=== PATIENT | female | born 1995 | race Caucasian/White ===

== ENCOUNTER 2024-12-06 12:27 | Inpatient (IN) ==
--- NOTE | 2024-12-06 12:54 | Emergency Department Note ---
Impression & Plan Suicide attempt by beta deanne overdose ED Provider Note HISTORY OF PRESENT ILLNESS: Patient is a 29-year-old female presenting with an intentional overdose. Patient reports that around 8 AM she took 1400 to 2000 mg of metoprolol. She states that she was trying to end her life with this. Reports that she was not really feeling any symptoms and started driving home. She states that about an hour into her drive she started feeling lightheaded and called 911. She states she was evaluated by an EMS crew and had an EKG done and vital signs done. She reports that she refused any further care and was feeling well enough and started driving home again. Reports that she started to get very lightheaded and dizzy and decided to come and be evaluated in the emergency department. Patient reports she was previously prescribed metoprolol. She is unsure which type of metoprolol that she took and how many tablets. She estimates her ingestion was 1400 to 2000 mg. She states that she feels like her heart is having palpitations. She reports feeling lightheaded and dizzy. Denies any chest pain or shortness of breath. She reports she has had previous suicide attempts via overdose and has previous inpatient psychiatric admissions. She denies any alcohol ingestion. She denies any Tylenol overdose. She does report she took "10 Excedrin overnight because I was having pain and then 3 more Excedrin this morning." ROS: as above PHYSICAL EXAM: Constitutional: Patient appears in no acute distress. HENT: Head: Normocephalic and atraumatic. Eyes: EOMI, PERRL Mouth/Throat: Mucous membranes moist. Neck: Trachea midline. Neck supple. Cardiovascular: Bradycardic with regular rhythm. No murmurs, rubs or gallops. Intact distal pulses. Pulmonary/Chest: No respiratory distress. Breath sounds clear and equal bilaterally. No wheezes or rales. Abdominal: Abdomen soft, no tenderness, rebound or guarding. Musculoskeletal: No edema, tenderness or deformity noted. Skin: Warm and dry. No rash, erythema, pallor or cyanosis Psychiatric: Appropriate mood and affect for situation. Neurological: Alert and keenly responsive. CN II-XII grossly intact, moving all extremities equally and fully. MDM: - Vitals signs showed bradycardia - History obtained via patient. History as above. - Chronic conditions affecting care: Depression - Differential diagnoses include, but are not limited to: Tylenol overdose; salicylate overdose; dysrhythmia; electrolyte abnormality; ACS - Order placed for continuous cardiac monitoring. At this time, monitor showed rate of 60 bpm with normal sinus rhythm, per my interpretation. - External medical records reviewed. - EKG image interpreted by myself showed normal sinus rhythm. Rate 64 bpm. QT 422. No acute ischemic changes. QRS noted 84 ms - Discussed case with Briana at the [facility] [place] at 12:54. She reports that the patient should be monitored for any hypotension, bradycardia and hypoglycemia. Recommended 24-hour admission. Recommended that the patient be given fluids if she has any hypotension. Recommended antiemetics for nausea and glucagon if the patient becomes unstable. Recommends repeat EKGs every 4-6 hours to monitor the patient's bradycardia. Recommended that if the patient's Tylenol level is greater than 10 or if her LFTs are elevated, should empirically be started on N-acetylcysteine. Recommended that if the patient has any sort of positive aspirin level, her aspirin level should be rechecked every 2 hours. Reports that if the serum aspirin level is greater than 30 then the patient should be started on bicarb containing fluids. - Discussed case with ICU attending, Dr. Marcus, at 13:15. He reports that the patient is likely stable for a stepdown unit. However, the patient decompensates she can be admitted to the ICU. - Patient was placed on the phototypesetting equipment monitor and cardiac pads were placed on the patient's chest. Atropine is at bedside in case of profound bradycardia. - Laboratory workup interpreted by myself showed leukocytosis; normal acetaminophen/tylenol/alcohol levels; relatively normal liver function - CXR image reviewed by myself negative for pneumonia, per my interpretation - Patient's heart rate became profoundly bradycardic down into the low 30s and she felt lightheaded like she is going to pass out. She given 1 mg of IV atropine. In addition, she was given IV bolus of 5 mg of IV glucagon. Heart rate improved back up to the 60s and patient's symptoms improved. - Called poison control center again at 1355. They report they will get me on the phone with the hand coper. Poison Control Center called back at 14:10 and I spoke with hand coper, Dr. Miller. He recommended that the patient not receive any further doses of atropine. He stated that what has been done so far is appropriate for the patient. He would recommend no glucagon drip, as this would require significant amount of glucagon that would be needed at unrealistic. He does recommend that the patient receive an echocardiogram while inpatient. He states that if the patient needs any blood pressure support or if her heart rate drops less than 40 again and she is becoming symptomatic, she should be started on an epinephrine drip. - Discussion was had with business case analyst about patient's case and need for admission - Hospitalist, Dr. Watts, consulted for admission - [facility]. I have personally spent 63 minutes of critical care time in the direct management of this patient. This includes bedside care, interpretation of diagnostic studies, and testing, discussion with consultants, patient, and family members, and other required patient management activities. This 63 minutes is in excess of all separately billable procedures. ASSESSMENT AND PLAN: Diagnosis: Beta-deanne overdose; suicide attempt via beta-deanne overdose Plan: Admit Past Med/Surg History Problem List (Updated 12/06/24 @ 14:25 by Casi Arroyo MD) Suicide attempt by beta deanne overdose (Acute) Social History Smoking Status: Never smoker Feels Safe at Home: Yes Results & Data (ED) Vital Signs Vital Signs - 24 hr 12/06/24 12:30 12/06/24 12:48 12/06/24 13:04 Temperature 36.7 C Temperature Source Temporal Artery Scan Pulse Rate 64 64 Pulse Rate [Apical] 59 L Pulse Rhythm [Apical] Irregular Respiratory Rate 18 22 Respiratory Effort / Characteristics Non-Labored Spontaneous Non-Labored Spontaneous Respiratory Depth Normal Normal Respiratory Pattern Regular Blood Pressure [Left Arm] 146/95 H Blood Pressure Mean [Left Arm] 112 Blood Pressure Position [Left Arm] Semi-fowlers Pulse Oximetry 99 98 Oxygen Delivery Method Room Air Room Air Sepsis Recent Fever Within 48 Hours No Sepsis New/Unexplained Change in Mental Status N/A Sepsis Action Taken by Nursing No Action Required 12/06/24 14:06 Temperature Temperature Source Pulse Rate Pulse Rate [Apical] 61 Pulse Rhythm [Apical] Respiratory Rate 20 Respiratory Effort / Characteristics Respiratory Depth Respiratory Pattern Blood Pressure [Left Arm] 165/90 H Blood Pressure Mean [Left Arm] 115 Blood Pressure Position [Left Arm] Pulse Oximetry 95 Oxygen Delivery Method Room Air Sepsis Recent Fever Within 48 Hours Sepsis New/Unexplained Change in Mental Status Sepsis Action Taken by Nursing Laboratory Data 12/06/24 12:50 12/06/24 12:50 Lab Results 12/06/24 12/06/24 12/06/24 Range/Units 12:50 12:57 13:50 WBC 13.84 H (4.8-10.8) K/ul RBC 5.05 (4.20-5.40) M/uL Hgb 14.8 (12.0-16.0) g/dl Hct 44.5 (37.0-47.0) % MCV 88.1 (80.0-100.0) fL MCH 29.3 (25.0-34.0) pg MCHC 33.3 (32.0-36.0) g/dL RDW Std Deviation 47.9 H (36.4-46.3) fL RDW Coeff of Miles 14.7 H (11.5-14.5) % Plt Count 312 (130-400) K/uL MPV 11.6 (9.4-12.4) fL Immature Gran % (Auto) 0.3 % Neut % (Auto) 64.8 % Lymph % (Auto) 29.3 % [place] % (Auto) 4.0 % Eos % (Auto) 1.4 % Baso % (Auto) 0.2 % Neut # (Auto) 8.97 H (1.40-6.50) K/uL Lymph # (Auto) 4.06 H (1.20-3.40) K/uL [place] # (Auto) 0.55 (0.11-0.59) K/uL Eos # (Auto) 0.19 (0.00-0.50) K/uL Baso # (Auto) 0.03 (0.00-0.20) K/uL Immature Gran # (Auto) 0.04 (0.01-0.20) K/uL PT 10.4 (9.0-12.0) Seconds INR 1.0 (0.9-1.1) Sodium 142 (136-145) mmol/L Potassium 3.7 (3.5-5.1) mmol/L Chloride 106 (98-107) mmol/L Carbon Dioxide 27 (21-32) mmol/L Anion Gap 9 (3-11) BUN 12 (6-23) mg/dl Creatinine 0.88 (0.6-1.2) mg/dl Est Cr Clr Drug Dosing 150.6 ml/min eGFR 90.05 BUN/Creatinine Ratio 13.6 (10-20) Glucose 116 H (70-99(Fasting)) mg/dl POC Glucose 106 H 96 (70-99) mg/dl Calcium 9.3 (8.6-10.3) mg/dl Magnesium 1.9 (1.7-2.4) mg/dl Total Bilirubin 0.4 (0.2-1.0) mg/dl AST 36 (13-39) U/L ALT 54 H (7-52) U/L Alkaline Phosphatase 71 (34-104) U/L Troponin I High Sens 4.4 (0-14) pg/ml Total Protein 8.1 (6.0-8.3) gm/dl Albumin 4.6 (3.4-5.0) gm/dl Globulin 3.5 (2.5-4.0) gm/dl Albumin/Globulin Ratio 1.3 (0.9-2) HCG, Qual Negative (Negative) Salicylates < 3.0 L (3.0-30) mg/dl Acetaminophen < 3 L (10-30) ug/ml Ethyl Alcohol mg/dL < 10.0 (<10.0) mg/dl Administered Medications Discontinued Medications Atropine Sulfate (Atropine Sulfate 0.1 Mg/Ml 10ml Syr) Confirm Administered Dose 1 mg IV .STK-MED ONE Stop: 12/06/24 12:48 Last Admin: 12/06/24 13:52 Dose: Not Given Documented By: ANN Atropine Sulfate (Atropine So4 1 Mg/Ml 1ml Vial) 1 mg IV NOW STA Stop: 12/06/24 13:53 Last Admin: 12/06/24 13:55 Dose: 1 mg Documented By: ANN Sodium Chloride (Nss) 1,000 mls @ 999 mls/hr IV .Q1H1M ONE Stop: 12/06/24 13:38 Last Infusion: 12/06/24 14:03 Dose: Infused Documented By: Admin: 12/06/24 12:58 Dose: 999 mls/hr Documented By: ANN Sodium Chloride (Nss) 1,000 mls @ 125 mls/hr IV .Q8H STA Stop: 12/06/24 21:44 Last Admin: 12/06/24 14:01 Dose: Not Given Documented By: ANN Imaging Data Radiologist's Impression: Chest X-Ray 12/06/24 13:15 SINGLE VIEW CHEST CLINICAL HISTORY: Dizziness FINDINGS: An AP, portable, upright chest radiograph is obtained. No prior studies are available for comparison at the time of dictation. The cardiomediastinal silhouette is unremarkable. The lungs and pleural spaces are clear. No pneumothorax is seen. The bony thorax is grossly intact. IMPRESSION: No active disease in the chest. ACT 112: Negative or not required by law. Electronically signed by: Nehemias Hand M.D. 12/06/2024 1:54 PM Discharge Plan Visit Data Chief Complaint: Overdose (Intentional) Stated Complaint: OVERDOSE ED Provider: Casi Arroyo Discharge Problem: Suicide attempt by beta deanne overdose Condition: Serious Forms Stand Alone Forms: [facility], Suicide Prevention Resources Referrals Referrals: PCP,NO [Physician] -
[2024-12-06] MEDS: SODIUM CHLORIDE 0.9% 1,000 ML IV ONE (12:58)
[2024-12-06 13:01] LABS: Hematocrit (blood only) 44.5 % (37.0-47.0); Hemoglobin 14.8 g/dl (12.0-16.0); Immature Granulocytes # (auto) 0.04 K/uL (0.01-0.20); Immature Granulocytes % (auto) 0.3 %; Mean Corpuscular Hemoglobin 29.3 pg (25.0-34.0); Mean Corpuscular Volume 88.1 fL (80.0-100.0); Platelet Count 312 K/uL (130-400); RDW Standard Deviation 47.9 fL (36.4-46.3); Red Blood Count 5.05 M/uL (4.20-5.40); White Blood Count 13.84 K/ul (4.8-10.8)
[2024-12-06 13:18] LABS: Alanine Aminotransferase 54.0 U/L (7-52); Albumin Globulin Ratio 1.3 (0.9-2); Alkaline Phosphatase 71.0 U/L (34-104); Anion Gap 9.0 (3-11); Bilirubin,Total 0.4 mg/dl (0.2-1.0); Blood Urea Nitrogen 12.0 mg/dl (6-23); Calcium 9.3 mg/dl (8.6-10.3); Carbon Dioxide 27.0 mmol/L (21-32); Chloride 106.0 mmol/L (98-107); Creatinine Clr Calc Pharmacy 150.6 ml/min; Globulin 3.5 gm/dl (2.5-4.0); Glucose 116.0 mg/dl (70-99(Fasting)); Magnesium 1.9 mg/dl (1.7-2.4); Potassium 3.7 mmol/L (3.5-5.1); Sodium 142.0 mmol/L (136-145); Total Protein 8.1 gm/dl (6.0-8.3)
[2024-12-06 13:24] LABS: Pregnancy Test, Serum Negative (Negative)
[2024-12-06 13:26] LABS: INR 1.0 (0.9-1.1); Prothrombin Time 10.4 Seconds (9.0-12.0)
[2024-12-06 13:52] LABS: Acetaminophen < 3 ug/ml (10-30); Salicylate < 3.0 mg/dl (3.0-30)
[2024-12-06] MEDS: ATROPINE SULFATE 0.1 MG/ML 10ML SYR IV ONE (13:52)
[2024-12-06] MEDS: SODIUM CHLORIDE 0.9% 1,000 ML IV STA (13:54)
[2024-12-06] MEDS: ATROPINE SO4 1 MG/ML 1ML VIAL IV STA (13:55)
--- NOTE | 2024-12-06 13:55 | XRay Report ---
SINGLE VIEW CHEST CLINICAL HISTORY: Dizziness FINDINGS: An AP, portable, upright chest radiograph is obtained. No prior studies are available for c omparison at the time of dictation. The cardiomediastinal silhouette is unremarkable. The lungs and p leural spaces are clear. No pneumothorax is seen. The bony thorax is grossly intact. IMPRESSION: No active disease in the chest. ACT 112: Negative or not required by law. Electronically signed by: Nehemias Hand M.D. 12/06/2024 1:54 PM
[2024-12-06] MEDS ORDERED: GLUCOSE 40% GEL 15 GM TUBE PO PRN (13:56)
[2024-12-06] MEDS ORDERED: DEXTROSE 50% 50 ML SYRINGE IV PRN (13:56)
[2024-12-06] MEDS ORDERED: GLUCOSE 10 TAB/TUBE PO PRN (13:56)
[2024-12-06] MEDS ORDERED: GLUCAGON FOR INJ 1 MG VIAL SQ PRN (13:56)
[2024-12-06] MEDS: GLUCAGON 5 MG in SYRINGE 0 ML IV ONE (14:23)
[2024-12-06] MEDS: MAGNESIUM SULFATE / D5W 1 GM/100 ML BAG IV ONE (14:33)
[2024-12-06] MEDS: ONDANSETRON INJ 2 MG/ML 2 ML VIAL IV PRN (14:59)
[2024-12-06] MEDS: POTASSIUM CHLORIDE CRTAB 20 MEQ TABCR PO STA (14:59)
[2024-12-06] MEDS: ONDANSETRON INJ 2 MG/ML 2 ML VIAL ONE (15:08)
[2024-12-06] MEDS ORDERED: POLYETHYLENE (MIRALAX) 17 GM PACK PO PRN (15:38)
[2024-12-06] MEDS ORDERED: ONDANSETRON INJ 2 MG/ML 2 ML VIAL IV PRN (15:38)
[2024-12-06] MEDS ORDERED: ACETAMINOPHEN 325 MG TAB PO PRN (15:38)
[2024-12-06] MEDS: ENOXAPARIN INJ 40 MG/0.4 ML SYR SQ SCH (15:54)
[2024-12-06] MEDS: LACTATED RINGER'S 1,000 ML IV SCH (15:54)
[2024-12-06] MEDS ORDERED: ATROPINE SULFATE 0.1 MG/ML 10ML SYR IV PRN (16:16)
--- NOTE | 2024-12-06 16:38 | History & Physical Report ---
Date of Service December 06, 2024 Assessment & Plan (1) Suicide attempt by beta deanne overdose: Plan: -patient attempted to overdose on metoprolol, taking around 1000 mg at one time -came to hospital for palpitations -ECG with QTc of 430, acceptable QRS complex size -given atropine in ED for bradycardia into 30s Plan: -psych consult, appreciate recs (order placed) -K>4, Mg>2 -monitor for hypoglycemia episodes -start LR maintenance fluids to assist with toxin elimination -zofran for nausea if needed (cant do metoclopramide due to suicide attempt) -atropine prn for symptomatic bradycardia -echo ordered -admit to PCU for further monitoring -if further symptomatic bradycardia can consider epinephrine infusion (2) ZACH (generalized anxiety disorder): Plan: -see above (3) Super obesity: Plan: -f/u outpatient Plan I spent a total of 80 minutes in direct patient care, including [id number] time with the patient and/or family, reviewing medical records, ordering and reviewing diagnostic tests, and coordinating care with other healthcare providers. This time includes: history taking, physical examination, medical decision making, counseling, ECG interpretation, imaging interpretation, lab interpretation, orders, and education, excluding time spent in the performance o f separately billed services. History of Present Illness Chief Complaint: -suicide attempt Primary Care Provider: NO PCP 29 yo female with pmhx of panic disorder/ZACH, migraines, hx of suicide attempts who presents for suicide attempt. No past admissions at this institution or at [facility]. In the ED, given fluids and atropine for bradycardia, poison control contacted, admitted to medicine for close monitoring and further workup. Patient seen and examined at bedside. Patient states she drove to a hotel in [place] to get away from home, lives in [place], [place]. In [place] last evening, thought about overdosing with her meds but did not. This morning around 7:30 am, she took a large quantity (1000mg per patient) of metoprolol, and 13 excedrin. States she was driving back home today when she decided she wanted to be evaluated and worked up for a suicide attempt. Per patient she is no longer having suicideal ideation. She has intrusive thoughts. She has no plan at this time. She states she is scared about losing everything, and the intrusive thoughts told her to kill herself. She state she has tried to kill herself in past and has inpatient psychiatric stays before. She takes no meds at home. Was recently prescribed wellbutryin and propranolol for anxiety but has not taken any. Vapes, no alcohol use, no drug use, full code. 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 (~12/06/24) ZACH (generalized anxiety disorder) Suicide attempt by beta deanne overdose (Acute) Social History Smoking Status: Current some day smoker Tobacco Type: E-cigarettes / Vaping Hx Alcohol Use: No Hx Substance Use: No Preferred Language: Libyan Communication Ability: Effective Direct Selling Counselor Required: No Beliefs That Will Affect Care: None Current Living Situation: Alone Feels Safe at Home: Yes Safety Concerns: Feels Safe At This Time Assistive Devices: None Review of Systems Review of Systems: -negative unless listed above Physical Exam Physical Exam: Gen: A&O 3 NAD, large body habitus HEENT: NCAT, EOMI, not icteric. External ears normal. No rhinorrhea. Moist mucous membranes. Neck: Supple, full range of motion, no observable masses, No meningeal sign. Lungs: No Respiratory distress. CV: RRR, no edema. Abdomen: Soft, nondistended, No rebound tenderness. MSK: No joint swelling, no redness. Skin: No rashes, petechiae, lesions. Normal color per patient. Neuro: Normal Gait, Grossly intact. Psych: denies sucidieal ideation, very flat affect, endorses intrusive thoughts, denies hallucinations Results & Data Results & Data Vital Signs (Past 12 Hours) Vital Signs Temp Pulse Pulse Resp BP Pulse Ox O2 Del Method 12/06/24 13:04 59 L 22 146/95 H 98 Room Air 12/06/24 12:48 64 12/06/24 12:30 36.7 C 64 18 99 Room Air Laboratory Results -personally reviewed, leukocytosis of 14 noted, mildly elevated ALT likely suggestive of developing GRAVES, undetctable salicylates/acteminophen levels Medications Administered Enoxaparin Sodium (Enoxaparin Inj 40 Mg/0.4 Ml Syr) 40 mg SQ Q24H AISHWARYA Stop: 01/05/25 15:44 Last Admin: 12/06/24 15:54 Dose: 40 mg Documented By: CÉSAR Lactated Ringer's (Lr) 1,000 mls @ 125 mls/hr IV .Q8H IASHWARYA Stop: 12/07/24 07:00 Last Admin: 12/06/24 15:54 Dose: 125 mls/hr Documented By: CÉSAR Ondansetron HCl (Ondansetron Inj 2 Mg/Ml 2 Ml Vial) 4 mg IV Q6H PRN PRN Reason: Nausea And Vomiting Stop: 01/05/25 14:30 Last Admin: 12/06/24 14:59 Dose: 4 mg Documented By: PIYUSH Code Status & VTE Plan Code Status -full code VTE Prophylaxis Plan VTE Prophylaxis will be ordered: Yes
--- NOTE | 2024-12-06 18:27 | Electrocardiogram Report ---
Test Reason : Blood Pressure : */* mmHG Vent. Rate : 64 BPM Atrial Rate : 64 BPM P-R Int : 152 ms QRS Dur : 84 ms QT Int : 422 ms P-R-T Axes : 66 17 26 degrees QTcB Int : 435 ms Normal sinus rhythm Normal ECG No previous ECGs available Confirmed by Ralph Daley ([id number]) on 12/06/2024 6:27:15 PM Referred By: Confirmed By: Ralph Daley
[2024-12-07 06:30] LABS: Hematocrit (blood only) 38.9 % (37.0-47.0); Hemoglobin 12.4 g/dl (12.0-16.0); Mean Corpuscular Hemoglobin 28.4 pg (25.0-34.0); Mean Corpuscular Volume 89.2 fL (80.0-100.0); Platelet Count 187 K/uL (130-400); RDW Standard Deviation 48.7 fL (36.4-46.3); Red Blood Count 4.36 M/uL (4.20-5.40); White Blood Count 9.98 K/ul (4.8-10.8)
[2024-12-07 07:07] LABS: Alanine Aminotransferase 38.0 U/L (7-52); Albumin Globulin Ratio 1.3 (0.9-2); Alkaline Phosphatase 49.0 U/L (34-104); Anion Gap 6.0 (3-11); Bilirubin,Total 0.4 mg/dl (0.2-1.0); Blood Urea Nitrogen 11.0 mg/dl (6-23); Calcium 8.6 mg/dl (8.6-10.3); Carbon Dioxide 25.0 mmol/L (21-32); Chloride 109.0 mmol/L (98-107); Creatine Kinase 87.0 U/L (26-192); Creatinine Clr Calc Pharmacy 176.7 ml/min; Globulin 2.7 gm/dl (2.5-4.0); Glucose 97.0 mg/dl (70-99(Fasting)); Magnesium 1.9 mg/dl (1.7-2.4); Potassium 4.0 mmol/L (3.5-5.1); Sodium 140.0 mmol/L (136-145); Total Protein 6.3 gm/dl (6.0-8.3)
--- NOTE | 2024-12-07 08:47 | Cardiology Consultation ---
Date of Consultation December 07, 2024 Assessment & Plan (1) Suicide attempt by beta deanne overdose: (2) Bradycardia: (3) Super obesity: Plan Patient admitted after a suicide attempt. She reportedly took approx 2000 mg of metoprolol tartrate 50 mg tabs yesterday morning around 8:00 AM While in the ER, she was treated with one dose of atropine for symptomatic bradycardia with HR in the low 30's. Overnight, HR's have improved, HR ranging 30-60s. No symptoms currently. Per poison control, if she has recurrent symptomatic bradycardia, start epinephrine gtt. No indication for glucagon gtt. Echo this morning with preserved LVEF, mild concentric LVH, and no significant valvular disease. Repeat EKG this morning - ordered Continue on telemetry Patient was hypertensive on arrival, then hypotensive last evening. BP acceptable this morning. Will avoid additional antihypertensives for now. Monitor. Anticipate HR's will improve with time and as metoprolol metabolizes out of her system. No indication for temporary pacemaker at this time. Case discussed with Dr. Kelley I spent a total of 60 minutes on the date of service in preparation, delivery, and documentation of the care provided to this patient, excluding any time spent in the performance of separately billed services. Lorrie Curry PA-C Department of Cardiology, [facility] This chart was completed in part utilizing Speech Voice Recognition Software. Grammatical errors, random word insertions, pronoun errors, and incomplete sentences are an occasional consequence of this system due to software limitations, ambient noise, and hardware issues. Any formal questions or concerns about the content, text, or information contained within the body of this dictation should be directly addressed to the provider for clarification. Supervising Physician Co-Signing Physician Notes I have personally performed a history and physical examination on the patient. I have reviewed the advance practitioner's documentation, and I agree with, and take responsibility for the plan of care. 29-year-old female presents with suicide attempt by beta-deanne overdose. Total dose of beta-deanne ingested unclear however, appears to be more than 1000 mg per history. Given dose of atropine and IV glucagon in ER as well as intravenous fluids. Her heart rate has remained in the 40s overnight. Her blood pressure within normal range. Denies any recurrent lightheadedness or dizziness. Preliminary review of bedside echocardiogram demonstrates left ventricular ejection fraction 55 to 60% without significant valvular pathology. She remains on one-to-one observation due to suicidal ideation. Recommendations: * Continue observation and telemetry monitoring. * No indication for temporary transvenous pacemaker at this time. * Initiate treatment with IV epinephrine if patient develops symptomatic bradycardia and hypotension. * Monitor electrolytes and replace as indicated. * Monitor for signs/symptoms of hypoglycemia. * Repeat ECG in AM. Kevin Kelley DO, [facility] I spent a total of 40 minutes on the date of service in preparation, delivery, and documentation of the care provided to this patient, excluding any time spent in the performance of separately billed services. History of Present Illness Reason for Consultation: Bradycardia due to BB overdose Requesting Physician: Radha Villa Attending Physician: Dr. Kelley. History of Present Illness Patient is a 29 year old female admitted to [facility] after a suicide attempt where she consumed approx 2000 mg of metoprolol tartrate around 8:00 AM yesterday. She also consumed 13 Excedrin over the course of 12 hours. She was at a hotel in [place] when she took the medications in attempt of suicide. She felt fine for awhile and decided to start to drive home. While driving, she became lightheaded and dizzy. She pulled over and called 911. EMS arrived and vitals were stable and she felt better, so she continued on her way. About an hour later she had recurrent symptoms and drove herself to the ER. She is from [facility] She was previously taking metoprolol tartrate 50 mg BID for hypertension but she has not taken medication regularly for months. She also used to be on propranolol for palpitations and anxiety, but has not been taking this. Upon admission EKG demonstrated NSR at 64 bmp, normal EKG, normal QTC. Initial WBC was slightly elevated and ALT was elevated at 54. Toxicology was < 3.0 L for salicylates and < 3 L for acetaminophen Negative alcohol ER contacted poison control upon arrival - Per ER notes: Discussed case with Briana at the [facility] at 12:54. She reports that the patient should be monitored for any hypotension, bradycardia and hypoglycemia. Recommended 24-hour admission. Recommended that the patient be given fluids if she has any hypotension. Recommended antiemetics for nausea and glucagon if the patient becomes unstable. Recommends repeat EKGs every 4-6 hours to monitor the patient's bradycardia. Recommended that if the patient's Tylenol level is greater than 10 or if her LFTs are elevated, should empirically be started on N-acetylcysteine. Recommended that if the patient has any sort of positive aspirin level, her aspirin level should be rechecked every 2 hours. Reports that if the serum aspirin level is greater than 30 then the patient should be started on bicarb containing fluids. While in the ER, she became more bradycardic with HR's in the 30's. She was treated with atropine. ER called poison control center again - Notes reviewed: Called poison control center again at 1355. They report they will get me on the phone with the drier take off tender. Poison Control Center called back at 14:10 and I spoke with drier take off tender, Dr. Miller. He recommended that the patient not receive any further doses of atropine. He stated that what has been done so far is appropriate for the patient. He would recommend no glucagon drip, as this would require significant amount of glucagon that would be needed at unrealistic. He does recommend that the patient receive an echocardiogram while inpatient. He states that if the patient needs any blood pressure support or if her heart rate drops less than 40 again and she is becoming symptomatic, she should be started on an epinephrine drip. Overnight, patient's HR remained in the 30-40's. No symptoms. Echo this morning revealed normal LVEF, mild concentric LVH, no significant valvular disease. At time of evaluation, patient resting in bed, feeling well. Denies dizziness, lightheadedness, chest pain, SOB. No palpitations or tachypalpitations. History includes: 1. Obesity 2. HTN 3. Prior suicide attempts 4. Anxiety/depression Allergies Allergy/AdvReac Type Severity Reaction Status Date / Time No Known Allergies Allergy Verified 12/06/24 14:48 Home Medications Medication Instructions Recorded Confirmed Type Metoprolol Tablets 0 mg PO DAILY 12/06/24 12/06/24 History Patient History Social History Smoking Status: Current some day smoker Tobacco Type: E-cigarettes / Vaping Hx Alcohol Use: No Hx Substance Use: No Preferred Language: Estonian Communication Ability: Effective [employer] Required: No Beliefs That Will Affect Care: None Current Living Situation: Alone Feels Safe at Home: Yes Safety Concerns: Feels Safe At This Time Assistive Devices: None Review of Systems Review of Systems: All systems reviewed & are unremarkable except as noted in HPI & below Physical Exam Constitutional: WD/WN, vitals as above + morbidly obese; no acute distress Neck: + thick neck Respiratory: normal respiratory effort; no respiratory distress and no labored breathing Auscultation: lungs clear to auscultation bilaterally; no rales, no rhonchi and no wheezes Cardiovascular: Rate/Rhythm: regular rate and regular rhythm Heart Sounds: no murmur (distant heart sounds. no audible murmur) Vessels: no JVD Extremities: no edema Gastrointestinal (Abdomen): normal bowel sounds, soft, nontender, no hepatosplenomegaly Musculoskeletal: no cyanosis or clubbing, extremities motor strength 5/5 Neurologic: PERRL, EOMI, accommodation nl, no face palsy, no dysarthria Psychiatric: A+Ox3, euthymic affect Results & Data Vital Signs (Past 12 Hours) Vital Signs Temp Pulse Pulse Resp BP Pulse Ox O2 Del Method 12/07/24 07:12 41 L 12/07/24 07:03 36.6 C 40 L 18 144/82 H 97 Room Air 12/07/24 03:06 36.4 C L 62 21 117/73 98 Room Air 12/06/24 23:00 36.7 C 40 L 21 99/59 L 94 Room Air 12/06/24 21:48 56 L Laboratory Results Cardiac Enzymes 12/06/24 12/07/24 Range/Units 12:50 06:00 AST 36 22 (13-39) U/L Troponin I High Sens 4.4 (0-14) pg/ml Coagulation 12/06/24 Range/Units 12:50 PT 10.4 (9.0-12.0) Seconds CBC 12/06/24 12/07/24 Range/Units 12:50 06:00 WBC 13.84 H 9.98 (4.8-10.8) K/ul RBC 5.05 4.36 (4.20-5.40) M/uL Hgb 14.8 12.4 (12.0-16.0) g/dl Hct 44.5 38.9 (37.0-47.0) % Plt Count 312 187 (130-400) K/uL Neut # (Auto) 8.97 H (1.40-6.50) K/uL Lymph # (Auto) 4.06 H (1.20-3.40) K/uL [place] # (Auto) 0.55 (0.11-0.59) K/uL Eos # (Auto) 0.19 (0.00-0.50) K/uL Baso # (Auto) 0.03 (0.00-0.20) K/uL Comprehensive Metabolic Panel 12/06/24 12/07/24 Range/Units 12:50 06:00 Sodium 142 140 (136-145) mmol/L Potassium 3.7 4.0 (3.5-5.1) mmol/L Chloride 106 109 H (98-107) mmol/L Carbon Dioxide 27 25 (21-32) mmol/L BUN 12 11 (6-23) mg/dl Creatinine 0.88 0.75 (0.6-1.2) mg/dl Glucose 116 H 97 (70-99(Fasting)) mg/dl Calcium 9.3 8.6 (8.6-10.3) mg/dl AST 36 22 (13-39) U/L ALT 54 H 38 (7-52) U/L Alkaline Phosphatase 71 49 (34-104) U/L Total Protein 8.1 6.3 D (6.0-8.3) gm/dl Albumin 4.6 3.6 (3.4-5.0) gm/dl Intake and Output 12/06/24 12/07/24 12/07/24 22:59 06:59 14:59 Intake Total 600 / 2704.167 1104.167 / 2704.167 1000 / 1000 Output Total 400 / 400 Balance 600 / 2304.167 704.167 / 2304.167 1000 / 1000 Intake: IV 100 / 2003.167 904.167 / 2004.167 1000 / 1000 Lactated Ringer's 1,000 ml @ 904.167 / 517.105 5339 / 1000 125 mls/hr IV .Q8H AISHWARYA Rx#: [id number] Magnesium Sulfate / D5w 1 gm In 100 / 100 100 ml @ 50 mls/hr IV ONE ONE Rx#:[id number] Oral 500 / 700 200 / 700 Output: Urine 400 / 400 Other: Weight 165.1 kg Weight Measurement Method Built in [facility] Diagnostic Findings Telemetry reviewed: Sinus and sinus bradycardia with periodic EKG reviewed from admission: NSR at 64 bmp, normal EKG, QT/QTc 422/435 ms Echo reviewed dated 12/07/24: No comparison available to review Normal LVEF at 55-60% Mild concentric LVH No significant valvular disease Chest X-Ray 12/06/24 13:15 SINGLE VIEW CHEST CLINICAL HISTORY: Dizziness FINDINGS: An AP, portable, upright chest radiograph is obtained. No prior studies are available for comparison at the time of dictation. The cardiomediastinal silhouette is unremarkable. The lungs and pleural spaces are clear. No pneumothorax is seen. The bony thorax is grossly intact. IMPRESSION: No active disease in the chest. Medications Administered Current Inpatient Medications Acetaminophen (Acetaminophen 325 Mg Tab) 650 mg PO Q4H PRN PRN Reason: Pain or Fever Stop: 01/05/25 15:37 Atropine Sulfate (Atropine Sulfate 0.1 Mg/Ml 10ml Syr) 0.5 mg IV Q4 PRN PRN Reason: symptomatic bradycardia<35 Stop: 01/05/25 16:15 Dextrose (Dextrose 50% 50 Ml Syringe) 25 - 50 ml IV UD PRN; Protocol PRN Reason: Hypoglycemia Protocol Stop: 01/05/25 13:55 Enoxaparin Sodium (Enoxaparin Inj 40 Mg/0.4 Ml Syr) 40 mg SQ Q24H AISHWARYA Stop: 01/05/25 15:44 Last Admin: 12/06/24 15:54 Dose: 40 mg Glucagon (Glucagon For Inj 1 Mg Vial) 1 mg SQ UD PRN; Protocol PRN Reason: Hypoglycemia Protocol Stop: 01/05/25 13:55 Glucose (Glucose 40% Gel 15 Gm Tube) 15 - 30 gm PO UD PRN; Protocol PRN Reason: Hypoglycemia Protocol Stop: 01/05/25 13:55 Glucose (Glucose 10 Tab/Tube) 4 - 8 tab PO UD PRN; Protocol PRN Reason: Hypoglycemia Protocol Stop: 01/05/25 13:55 Ondansetron HCl (Ondansetron Inj 2 Mg/Ml 2 Ml Vial) 4 mg IV Q6H PRN PRN Reason: Nausea And Vomiting Stop: 01/05/25 14:30 Last Admin: 12/06/24 14:59 Dose: 4 mg Polyethylene Glycol (Polyethylene (Miralax) 17 Gm Pack) 17 gm PO DAILY PRN PRN Reason: Constipation Stop: 01/05/25 15:37 PG Care Time/CCT Total # of Minutes Spent Total Time Spent with Patient: Total time spent is greater than 50% in coordination of care (as documented) at patient's floor/unit and/or counseling patient: 60 Coding Level of Care Code 36426 IN/OBS CONSULT LVL 4,60M Diagnoses Suicide attempt by beta-adrenergic antagonist overdose, initial encounter T44.7X2A Encounter type: initial encounter Bradycardia R00.1 Super obesity E66.9 (1) Suicide attempt by beta deanne overdose Encounter type: initial encounter Qualified Code(s): T44.7X2A - Poisoning by beta-adrenoreceptor antagonists, intentional self-harm, initial encounter
--- NOTE | 2024-12-07 11:24 | Hospitalist Progress Note ---
Date of Service December 07, 2024 Assessment & Plan (1) Suicide attempt by beta deanne overdose: Plan: Patient attempted to overdose on metoprolol, taking around 1000 mg at one time Came to hospital for palpitations ECG with QTc of 430, acceptable QRS complex size Given atropine in ED for bradycardia into 30s Getting cautious amount of intravenous fluid with LR, Has been on atropine as needed for symptomatic bradycardia and may need to start norepinephrine if bradycardia with symptoms persist Clinically looking better today and the monitor showing bradycardia as low as 130s without symptoms Appreciate cardiology input and recommendation Echo of the heart showed-LV systolic function is normal with EF 55 to 60%, there is mild concentric LVH and no significant valvular pathology Will monitor electrolytes Awaiting psychiatric evaluation Remains on one-to-one sitter Will monitor blood pressure to see the requirement of any antihypertensive agents (2) ZACH (generalized anxiety disorder): Plan: -see above (3) Super obesity: Plan: -f/u outpatient DVT prophylaxis Subcu Lovenox CODE STATUSfull Admission and Anticipated Discharge Date Admission Date: December 06, 2024 Subjective 12/07/2024 The patient was seen and examined in the telemetry unit She has been feeling better today but is still has weakness and tiredness No shortness of breath and/or palpitation Review of Systems Review of Systems: All systems reviewed and are unremarkable except as noted below Physical Exam Physical Exam: Lying in bed without any acute distress Constitutional: well developed, well nourished, + ill appearing and + morbidly obese Eyes: PERRL, conjunctivae normal, anicteric sclerae ENMT: external ear and nose normal, oropharynx normal Neck: trachea midline, no thyromegaly Respiratory: no respiratory distress Auscultation: lungs clear to auscultation bilaterally and + diminished lung sounds Cardiovascular: Rate/Rhythm: regular rate and regular rhythm Heart Sounds: normal S1, normal S2 and + murmur Extremities: no edema Gastrointestinal (Abdomen): Inspection/Auscultation: + abdomen distended and normal bowel sounds Percussion/Palpation: abdomen soft; abdomen nontender Musculoskeletal: No acute arthritis involving any of the joint Neurologic: normal touch/pain/proprioception and moves all extremities; no focal motor deficits Lymphatic: no cervical or axillary lymphadenopathy Results & Data Results & Data Vital Signs (Past 12 Hours) Vital Signs Temp Pulse Pulse Resp BP Pulse Ox O2 Del Method 12/07/24 09:41 Room Air 12/07/24 07:12 41 L 12/07/24 07:03 36.6 C 40 L 18 144/82 H 97 Room Air 12/07/24 03:06 36.4 C L 62 21 117/73 98 Room Air Laboratory Results Short CBC 12/06/24 12/07/24 Range/Units 12:50 06:00 WBC 13.84 H 9.98 (4.8-10.8) K/ul Hgb 14.8 12.4 (12.0-16.0) g/dl Hct 44.5 38.9 (37.0-47.0) % Plt Count 312 187 (130-400) K/uL BMP 12/06/24 12/07/24 12:50 06:00 Sodium 142 140 Potassium 3.7 4.0 Chloride 106 109 H Carbon Dioxide 27 25 BUN 12 11 Creatinine 0.88 0.75 Glucose 116 H 97 Calcium 9.3 8.6 Cardiac Enzymes 12/07/24 Range/Units 06:00 Total Creatine Kinase 87 (26-192) U/L Liver Function 12/06/24 12/07/24 Range/Units 12:50 06:00 Total Bilirubin 0.4 0.4 (0.2-1.0) mg/dl AST 36 22 (13-39) U/L ALT 54 H 38 (7-52) U/L Alkaline Phosphatase 71 49 (34-104) U/L Albumin 4.6 3.6 (3.4-5.0) gm/dl Medications Administered Current Inpatient Medications Acetaminophen (Acetaminophen 325 Mg Tab) 650 mg PO Q4H PRN PRN Reason: Pain or Fever Stop: 01/05/25 15:37 Atropine Sulfate (Atropine Sulfate 0.1 Mg/Ml 10ml Syr) 0.5 mg IV Q4 PRN PRN Reason: symptomatic bradycardia<35 Stop: 01/05/25 16:15 Dextrose (Dextrose 50% 50 Ml Syringe) 25 - 50 ml IV UD PRN; Protocol PRN Reason: Hypoglycemia Protocol Stop: 01/05/25 13:55 Enoxaparin Sodium (Enoxaparin Inj 40 Mg/0.4 Ml Syr) 40 mg SQ Q24H [facility] Stop: 01/05/25 15:44 Last Admin: 12/06/24 15:54 Dose: 40 mg Glucagon (Glucagon For Inj 1 Mg Vial) 1 mg SQ UD PRN; Protocol PRN Reason: Hypoglycemia Protocol Stop: 01/05/25 13:55 Glucose (Glucose 40% Gel 15 Gm Tube) 15 - 30 gm PO UD PRN; Protocol PRN Reason: Hypoglycemia Protocol Stop: 01/05/25 13:55 Glucose (Glucose 10 Tab/Tube) 4 - 8 tab PO UD PRN; Protocol PRN Reason: Hypoglycemia Protocol Stop: 01/05/25 13:55 Ondansetron HCl (Ondansetron Inj 2 Mg/Ml 2 Ml Vial) 4 mg IV Q6H PRN PRN Reason: Nausea And Vomiting Stop: 01/05/25 14:30 Last Admin: 12/06/24 14:59 Dose: 4 mg Polyethylene Glycol (Polyethylene (Miralax) 17 Gm Pack) 17 gm PO DAILY PRN PRN Reason: Constipation Stop: 01/05/25 15:37 (1) Suicide attempt by beta deanne overdose Encounter type: initial encounter Qualified Code(s): T44.7X2A - Poisoning by beta-adrenoreceptor antagonists, intentional self-harm, initial encounter
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
--- NOTE | 2024-12-07 15:44 | Electrocardiogram Report ---
Test Reason : Blood Pressure : */* mmHG Vent. Rate : 41 BPM Atrial Rate : 41 BPM P-R Int : 136 ms QRS Dur : 90 ms QT Int : 494 ms P-R-T Axes : 35 22 18 degrees QTcB Int : 407 ms Marked sinus bradycardia with marked sinus arrhythmia Abnormal ECG When compared with ECG of 06-Dec-2024 12:42, Vent. rate has decreased by 23 bpm Confirmed by Ralph Daley ([id number]) on 12/07/2024 3:44:17 PM Referred By: REFERRED SELF Confirmed By: Ralph Daley
[2024-12-08 07:57] LABS: Alanine Aminotransferase 37.0 U/L (7-52); Albumin Globulin Ratio 1.4 (0.9-2); Alkaline Phosphatase 53.0 U/L (34-104); Anion Gap 7.0 (3-11); Bilirubin,Total 0.6 mg/dl (0.2-1.0); Blood Urea Nitrogen 8.0 mg/dl (6-23); Calcium 8.7 mg/dl (8.6-10.3); Carbon Dioxide 27.0 mmol/L (21-32); Chloride 106.0 mmol/L (98-107); Creatinine Clr Calc Pharmacy 193.4 ml/min; Globulin 2.8 gm/dl (2.5-4.0); Glucose 93.0 mg/dl (70-99(Fasting)); Magnesium 1.8 mg/dl (1.7-2.4); Potassium 4.0 mmol/L (3.5-5.1); Sodium 140.0 mmol/L (136-145); Total Protein 6.6 gm/dl (6.0-8.3)
--- NOTE | 2024-12-08 10:03 | Cardiology Progress Note ---
Date of Service December 08, 2024 Assessment & Plan (1) Suicide attempt by beta deanne overdose: (2) Bradycardia: (3) Super obesity: Plan 12/07/24 Patient admitted after a suicide attempt with beta blockers. She reportedly took approx 2000 mg of metoprolol tartrate 50 mg tabs morning of 12/06 around 8:00 AM While in the ER, she was treated with one dose of atropine for symptomatic bradycardia with HR in the low 30's. Overnight, HR's have improved, HR ranging 30-60s. No symptoms currently. Per poison control, if she has recurrent symptomatic bradycardia, start epinephrine gtt. No indication for glucagon gtt. Echo this morning with preserved LVEF, mild concentric LVH, and no significant valvular disease. Repeat EKG this morning - ordered Continue on telemetry Patient was hypertensive on arrival, then hypotensive last evening. BP acceptable this morning. Will avoid additional antihypertensives for now. Monitor. Anticipate HR's will improve with time and as metoprolol metabolizes out of her system. No indication for temporary pacemaker at this time. 12/08/24: No events overnight. Remains NSR and HR's have improved compared to yesterday, now mostly in the 50- 60's While sleeping/at rest, she does drop into the 30 and 40's on telemetry. No symptoms. No symptomatic bradycardia. Avoid AV dimitri blocking agents. Recommend evaluation for MORENITA. Replace magnesium 2 grams this morning Per poison control, if she develops symptomatic bradycardia, start epinephrine gtt. Monitor for hypoglycemia. Echo with preserved LVEF, mild LVH, no significant valvular disease. BP improved. No indication for antihypertensive therapy. Case discussed with Dr. Kelley I spent a total of 35 minutes on the date of service in preparation, delivery, and documentation of the care provided to this patient, excluding any time spent in the performance of separately billed services. Lorrie Curry PA-C Department of Cardiology, [facility] This chart was completed in part utilizing Speech Voice Recognition Software. Grammatical errors, random word insertions, pronoun errors, and incomplete sentences are an occasional consequence of this system due to software limitations, ambient noise, and hardware issues. Any formal questions or concerns about the content, text, or information contained within the body of this dictation should be directly addressed to the provider for clarification. Admission and Anticipated Discharge Date Admission Date: December 06, 2024 Supervising Physician Co-Signing Physician Notes I have personally performed a history and physical examination on the patient. I have reviewed the advance practitioner's documentation, and I agree with, and take responsibility for the plan of care. 29-year-old female presents with suicide attempt by beta-deanne overdose. Total dose of beta-deanne ingested unclear however, appears to be more than 1000 mg per history. Given dose of atropine and IV glucagon in ER as well as intravenous fluids. Heart rate improved this a.m., although intermittently dipping into the 30's - 40s during sleep. Intermittent elevated BP recorded with a situational component. Denies any recurrent lightheadedness or dizziness. She remains on one-to-one observation due to suicidal ideation. Recommendations: * Continue telemetry monitoring. * No indication for temporary transvenous pacemaker at this time. * MORENITA evaluation * Monitor electrolytes and replace as indicated. * Monitor for signs/symptoms of hypoglycemia. Kevin Kelley DO, [facility] I spent a total of 30 minutes on the date of service in preparation, delivery, and documentation of the care provided to this patient, excluding any time spent in the performance of separately billed services. Subjective Patient sleeping in bed. Awakens easily. Aide at bedside as she remains on 1:1 given suicide attempt. She denies acute cardiac complaints. While awake HR ranging mid 50-80's. While asleep her HR will dip into the 30 and 40's. No prolonged R to R intervals. No pauses or high degree AV block. Review of Systems Review of Systems: All systems reviewed & are unremarkable except as noted in HPI & below Physical Exam Constitutional: WD/WN, vitals as above + morbidly obese; no acute distress Neck: + thick neck Respiratory: normal respiratory effort; no respiratory distress and no labored breathing Auscultation: lungs clear to auscultation bilaterally; no rales, no rhonchi and no wheezes Cardiovascular: Rate/Rhythm: regular rate and regular rhythm Heart Sounds: no murmur (distant heart sounds. no audible murmur) Vessels: no JVD Extremities: no edema Gastrointestinal (Abdomen): normal bowel sounds, soft, nontender, no hepatosplenomegaly Musculoskeletal: no cyanosis or clubbing, extremities motor strength 5/5 Neurologic: PERRL, EOMI, accommodation nl, no face palsy, no dysarthria Psychiatric: A+Ox3, euthymic affect Results & Data Vital Signs (Past 12 Hours) Vital Signs Temp Pulse Pulse Resp BP Pulse Ox O2 Del Method 12/08/24 09:17 Room Air 12/08/24 09:15 211 H 12/08/24 06:56 37.1 C 56 L 20 116/66 97 Room Air 12/08/24 03:46 37.0 C 80 14 134/90 96 Room Air 12/07/24 23:53 36.9 C 67 18 128/81 96 Room Air Laboratory Results Cardiac Enzymes 12/08/24 Range/Units 07:18 AST 25 (13-39) U/L Comprehensive Metabolic Panel 12/08/24 Range/Units 07:18 Sodium 140 (136-145) mmol/L Potassium 4.0 (3.5-5.1) mmol/L Chloride 106 (98-107) mmol/L Carbon Dioxide 27 (21-32) mmol/L BUN 8 (6-23) mg/dl Creatinine 0.69 (0.6-1.2) mg/dl Glucose 93 (70-99(Fasting)) mg/dl Calcium 8.7 (8.6-10.3) mg/dl AST 25 (13-39) U/L ALT 37 (7-52) U/L Alkaline Phosphatase 53 (34-104) U/L Total Protein 6.6 (6.0-8.3) gm/dl Albumin 3.8 (3.4-5.0) gm/dl Intake and Output 12/07/24 12/08/24 12/08/24 22:59 06:59 14:59 Intake Total 1200 / 2550 350 / 2550 Output Total 500 / 1251 600 / 1251 Balance 700 / 1299 -250 / 1299 Intake: IV 1000 / 2000 Lactated Ringer's 1,000 ml @ 1000 / 2000 125 mls/hr IV .Q8H [facility] Rx#: [id number] Oral 200 / 550 350 / 550 Output: Urine 500 / 1250 600 / 1250 Other: Weight 168.1 kg 166.9 kg Weight Measurement Method Standing Scale Standing Scale Diagnostic Findings Telemetry reviewed: NSR with HR ranging 55-80 while awake. During sleep and at rest, her HR will go down to 30-40's. No symptoms. No prolonged R to R intervals or high degree AV block Medications Administered Current Inpatient Medications Acetaminophen (Acetaminophen 325 Mg Tab) 650 mg PO Q4H PRN PRN Reason: Pain or Fever Stop: 01/05/25 15:37 Atropine Sulfate (Atropine Sulfate 0.1 Mg/Ml 10ml Syr) 0.5 mg IV Q4 PRN PRN Reason: symptomatic bradycardia<35 Stop: 01/05/25 16:15 Dextrose (Dextrose 50% 50 Ml Syringe) 25 - 50 ml IV UD PRN; Protocol PRN Reason: Hypoglycemia Protocol Stop: 01/05/25 13:55 Enoxaparin Sodium (Enoxaparin Inj 40 Mg/0.4 Ml Syr) 40 mg SQ Q24H AISHWARYA Stop: 01/05/25 15:44 Last Admin: 12/07/24 15:34 Dose: 40 mg Glucagon (Glucagon For Inj 1 Mg Vial) 1 mg SQ UD PRN; Protocol PRN Reason: Hypoglycemia Protocol Stop: 01/05/25 13:55 Glucose (Glucose 40% Gel 15 Gm Tube) 15 - 30 gm PO UD PRN; Protocol PRN Reason: Hypoglycemia Protocol Stop: 01/05/25 13:55 Glucose (Glucose 10 Tab/Tube) 4 - 8 tab PO UD PRN; Protocol PRN Reason: Hypoglycemia Protocol Stop: 01/05/25 13:55 Magnesium Sulfate/Dextrose (Magnesium Sulfate / D5w) 1 gm in 100 mls @ 50 mls/hr IV Q2H AISHWARYA Stop: 12/08/24 13:29 Ondansetron HCl (Ondansetron Inj 2 Mg/Ml 2 Ml Vial) 4 mg IV Q6H PRN PRN Reason: Nausea And Vomiting Stop: 01/05/25 14:30 Last Admin: 12/06/24 14:59 Dose: 4 mg Polyethylene Glycol (Polyethylene (Miralax) 17 Gm Pack) 17 gm PO DAILY PRN PRN Reason: Constipation Stop: 01/05/25 15:37 PG Care Time/CCT Total # of Minutes Spent Total Time Spent with Patient: Total time spent is greater than 50% in coordination of care (as documented) at patient's floor/unit and/or counseling patient: 35 Coding Level of Care Code 56514 SUB INP/OBS CARE 3/50MIN Diagnoses Suicide attempt by beta-adrenergic antagonist overdose, initial encounter T44.7X2A Encounter type: initial encounter Bradycardia R00.1 Super obesity E66.9 (1) Suicide attempt by beta deanne overdose Encounter type: initial encounter Qualified Code(s): T44.7X2A - Poisoning by beta-adrenoreceptor antagonists, intentional self-harm, initial encounter
[2024-12-08] MEDS: MAGNESIUM SULFATE / D5W 1 GM/100 ML BAG IV SCH (10:27)
--- NOTE | 2024-12-08 11:15 | Electrocardiogram Report ---
Test Reason : Blood Pressure : */* mmHG Vent. Rate : 60 BPM Atrial Rate : 60 BPM P-R Int : 148 ms QRS Dur : 84 ms QT Int : 420 ms P-R-T Axes : 46 10 15 degrees QTcB Int : 420 ms Sinus rhythm with marked sinus arrhythmia Otherwise normal ECG When compared with ECG of 07-Dec-2024 10:26, No significant change was found Confirmed by Ralph Daley ([id number]) on 12/08/2024 11:15:34 AM Referred By: REFERRED SELF Confirmed By: Ralph Daley
--- NOTE | 2024-12-08 15:17 | Hospitalist Progress Note ---
Date of Service December 08, 2024 Assessment & Plan (1) Suicide attempt by beta deanne overdose: Plan: Patient attempted to overdose on metoprolol, taking around 1000 mg at one time Came to hospital for palpitations ECG with QTc of 430, acceptable QRS complex size Given atropine in ED for bradycardia into 30s Getting cautious amount of intravenous fluid with LR, Has been on atropine as needed for symptomatic bradycardia and may need to start norepinephrine if bradycardia with symptoms persist Clinically looking better today and the monitor showing bradycardia as low as 130s without symptoms Appreciate cardiology input and recommendation Echo of the heart showed-LV systolic function is normal with EF 55 to 60%, there is mild concentric LVH and no significant valvular pathology Will monitor electrolytes Awaiting psychiatric evaluation Remains on one-to-one sitter Will monitor blood pressure to see the requirement of any antihypertensive agents Heart rate is coming gradually but is still remains low at upper 30s while sleeping Electrolytes have been replaced Appreciate psychiatric input and recommendationrule out to sign out AMA and will need to have a 302 warrant if required Medically cleared to go for inpatient psychiatric care (2) ZACH (generalized anxiety disorder): Plan: -see above (3) Super obesity: Plan: -f/u outpatient Will need to have outpatient polysomnography to rule out any obstructive sleep apnea DVT prophylaxis Subcu Lovenox CODE STATUSfull Admission and Anticipated Discharge Date Admission Date: December 06, 2024 Subjective 12/07/2024 The patient was seen and examined in the telemetry unit She has been feeling better today but is still has weakness and tiredness No shortness of breath and/or palpitation 12/08/2024 The patient was seen and examined in telemetry unit She wanted to sign out AMA last evening but that was controlled She denies any symptoms today Remains bradycardic especially when sleeping goes down to upper 30s without any symptoms Review of Systems Review of Systems: All systems reviewed and are unremarkable except as noted below Physical Exam Physical Exam: Lying in bed without any acute distress Constitutional: well developed, well nourished, + ill appearing and + morbidly obese Eyes: PERRL, conjunctivae normal, anicteric sclerae ENMT: external ear and nose normal, oropharynx normal Neck: trachea midline, no thyromegaly Respiratory: no respiratory distress Auscultation: lungs clear to auscultation bilaterally and + diminished lung sounds Cardiovascular: Rate/Rhythm: regular rate and regular rhythm Heart Sounds: normal S1, normal S2 and + murmur Extremities: no edema Gastrointestinal (Abdomen): Inspection/Auscultation: + abdomen distended and normal bowel sounds Percussion/Palpation: abdomen soft; abdomen nontender Musculoskeletal: No acute distress at rest Neurologic: normal touch/pain/proprioception and moves all extremities; no focal motor deficits Lymphatic: no cervical or axillary lymphadenopathy Results & Data Results & Data Vital Signs (Past 12 Hours) Vital Signs Temp Pulse Pulse Resp BP BP Pulse Ox 12/08/24 15:02 37.0 C 63 19 110/67 97 12/08/24 15:00 12/08/24 13:44 43 L 12/08/24 13:10 130/57 L 12/08/24 12:31 171/98 H 12/08/24 10:30 37.1 C 64 20 172/78 H 97 12/08/24 09:17 12/08/24 09:15 211 H 12/08/24 06:56 37.1 C 56 L 20 116/66 97 12/08/24 03:46 37.0 C 80 14 134/90 96 Pulse Ox O2 Del Method O2 Del Method 12/08/24 15:02 Room Air 12/08/24 15:00 98 Room Air 12/08/24 13:44 12/08/24 13:10 12/08/24 12:31 12/08/24 10:30 Room Air 12/08/24 09:17 Room Air 12/08/24 09:15 12/08/24 06:56 Room Air 12/08/24 03:46 Room Air Laboratory Results BMP 12/08/24 07:18 Sodium 140 Potassium 4.0 Chloride 106 Carbon Dioxide 27 BUN 8 Creatinine 0.69 Glucose 93 Calcium 8.7 Liver Function 12/08/24 Range/Units 07:18 Total Bilirubin 0.6 (0.2-1.0) mg/dl AST 25 (13-39) U/L ALT 37 (7-52) U/L Alkaline Phosphatase 53 (34-104) U/L Albumin 3.8 (3.4-5.0) gm/dl Medications Administered Current Inpatient Medications Acetaminophen (Acetaminophen 325 Mg Tab) 650 mg PO Q4H PRN PRN Reason: Pain or Fever Stop: 01/05/25 15:37 Atropine Sulfate (Atropine Sulfate 0.1 Mg/Ml 10ml Syr) 0.5 mg IV Q4 PRN PRN Reason: symptomatic bradycardia<35 Stop: 01/05/25 16:15 Dextrose (Dextrose 50% 50 Ml Syringe) 25 - 50 ml IV UD PRN; Protocol PRN Reason: Hypoglycemia Protocol Stop: 01/05/25 13:55 Enoxaparin Sodium (Enoxaparin Inj 40 Mg/0.4 Ml Syr) 40 mg SQ Q24H AISHWARYA Stop: 01/05/25 15:44 Last Admin: 12/07/24 15:34 Dose: 40 mg Glucagon (Glucagon For Inj 1 Mg Vial) 1 mg SQ UD PRN; Protocol PRN Reason: Hypoglycemia Protocol Stop: 01/05/25 13:55 Glucose (Glucose 40% Gel 15 Gm Tube) 15 - 30 gm PO UD PRN; Protocol PRN Reason: Hypoglycemia Protocol Stop: 01/05/25 13:55 Glucose (Glucose 10 Tab/Tube) 4 - 8 tab PO UD PRN; Protocol PRN Reason: Hypoglycemia Protocol Stop: 01/05/25 13:55 Ondansetron HCl (Ondansetron Inj 2 Mg/Ml 2 Ml Vial) 4 mg IV Q6H PRN PRN Reason: Nausea And Vomiting Stop: 01/05/25 14:30 Last Admin: 12/06/24 14:59 Dose: 4 mg Polyethylene Glycol (Polyethylene (Miralax) 17 Gm Pack) 17 gm PO DAILY PRN PRN Reason: Constipation Stop: 01/05/25 15:37 (1) Suicide attempt by beta deanne overdose Encounter type: initial encounter Qualified Code(s): T44.7X2A - Poisoning by beta-adrenoreceptor antagonists, intentional self-harm, initial encounter
[2024-12-09 04:43] LABS: Alanine Aminotransferase 50.0 U/L (7-52); Albumin Globulin Ratio 1.3 (0.9-2); Alkaline Phosphatase 60.0 U/L (34-104); Anion Gap 7.0 (3-11); Bilirubin,Total 0.7 mg/dl (0.2-1.0); Blood Urea Nitrogen 7.0 mg/dl (6-23); Calcium 8.6 mg/dl (8.6-10.3); Carbon Dioxide 28.0 mmol/L (21-32); Chloride 104.0 mmol/L (98-107); Creatinine Clr Calc Pharmacy 178.0 ml/min; Globulin 2.9 gm/dl (2.5-4.0); Glucose 89.0 mg/dl (70-99(Fasting)); Magnesium 2.0 mg/dl (1.7-2.4); Potassium 3.5 mmol/L (3.5-5.1); Sodium 139.0 mmol/L (136-145); Total Protein 6.6 gm/dl (6.0-8.3)
--- NOTE | 2024-12-09 11:20 | Cardiology Progress Note ---
Date of Service December 09, 2024 Assessment & Plan (1) Suicide attempt by beta deanne overdose: (2) Bradycardia: (3) Super obesity: Plan 12/07/24 Patient admitted after a suicide attempt with beta blockers. She reportedly took approx 2000 mg of metoprolol tartrate 50 mg tabs morning of 12/06 around 8:00 AM While in the ER, she was treated with one dose of atropine for symptomatic bradycardia with HR in the low 30's. Overnight, HR's have improved, HR ranging 30-60s. No symptoms currently. Per poison control, if she has recurrent symptomatic bradycardia, start epinephrine gtt. No indication for glucagon gtt. Echo this morning with preserved LVEF, mild concentric LVH, and no significant valvular disease. Repeat EKG this morning - ordered Continue on telemetry Patient was hypertensive on arrival, then hypotensive last evening. BP acceptable this morning. Will avoid additional antihypertensives for now. Monitor. Anticipate HR's will improve with time and as metoprolol metabolizes out of her system. No indication for temporary pacemaker at this time. 12/08/24: No events overnight. Remains NSR and HR's have improved compared to yesterday, now mostly in the 50- 60's While sleeping/at rest, she does drop into the 30 and 40's on telemetry. No symptoms. No symptomatic bradycardia. Avoid AV dimitri blocking agents. Recommend evaluation for MORENITA. Replace magnesium 2 grams this morning Per poison control, if she develops symptomatic bradycardia, start epinephrine gtt. Monitor for hypoglycemia. Echo with preserved LVEF, mild LVH, no significant valvular disease. BP improved. No indication for antihypertensive therapy. 12/09/24: HR's continue to improve. Currently NSR in the 50 and 60's. No prolonged R to R intervals. No symptomatic bradycardia. Echo with preserved LVEF, mild LVH, no significant valvular disease No further cardiac testing required. Would recommend outpatient evaluation for MORENITA. Will sign off. Discharge plans per hospitalist and psychiatry given her suicidal intentions. Please contact superintendent distribution novelty printing machine operator with additional questions or concerns. Case discussed with Dr. Evans I spent a total of 25 minutes on the date of service in preparation, delivery, and documentation of the care provided to this patient, excluding any time spent in the performance of separately billed services. Lorrie Curry PA-C Department of Cardiology, [facility] This chart was completed in part utilizing Speech Voice Recognition Software. Grammatical errors, random word insertions, pronoun errors, and incomplete sentences are an occasional consequence of this system due to software limitations, ambient noise, and hardware issues. Any formal questions or concerns about the content, text, or information contained within the body of this dictation should be directly addressed to the provider for clarification. Admission and Anticipated Discharge Date Admission Date: December 06, 2024 Supervising Physician Co-Signing Physician Notes I have personally performed a history and physical examination on the patient. I have reviewed the advance practitioner's documentation, and I agree with, and take responsibility for the plan of care. 29-year-old female presents with suicide attempt by beta-deanne overdose. Given dose of atropine and IV glucagon in ER as well as intravenous fluids. Sinus bradycardia observed on telemetry during sleep. As of 11:26 am SR in the 70s and 80s notes on telemetry now that patient is awake. BPs trending up. Recommendations: * No indication for temporary transvenous pacemaker at this time. * MORENITA evaluation at outpatient * Medically cleared to go for inpatient psychiatric care * Some blood pressure readings have been high. Continue to monitor to see if alternative antihypertensive medication indicated. Senthil Evans, DO I spent a total of 30 minutes on the date of service in preparation, delivery, and documentation of the care provided to this patient, excluding any time spent in the performance of separately billed services. Subjective Patient resting in bed. Feeling "fine". Wants to go home. Denies chest pain, SOB, dizziness, palpitations. Review of Systems Review of Systems: All systems reviewed & are unremarkable except as noted in HPI & below Physical Exam Constitutional: WD/WN, vitals as above + morbidly obese; no acute distress Neck: + thick neck Respiratory: normal respiratory effort; no respiratory distress and no labored breathing Auscultation: lungs clear to auscultation bilaterally; no rales, no rhonchi and no wheezes Cardiovascular: Rate/Rhythm: regular rate and regular rhythm Heart Sounds: no murmur (distant heart sounds. no audible murmur) Vessels: no JVD Extremities: no edema Gastrointestinal (Abdomen): normal bowel sounds, soft, nontender, no hepatosplenomegaly Musculoskeletal: no cyanosis or clubbing, extremities motor strength 5/5 Neurologic: PERRL, EOMI, accommodation nl, no face palsy, no dysarthria Psychiatric: A+Ox3, euthymic affect Results & Data Vital Signs (Past 12 Hours) Vital Signs Temp Pulse Pulse Resp BP Pulse Ox O2 Del Method 12/09/24 10:56 36.9 C 80 17 193/87 H 97 Room Air 12/09/24 07:29 Room Air 12/09/24 07:29 43 L 12/09/24 07:20 36.7 C 66 18 159/82 H 97 Room Air 12/09/24 03:26 36.8 C 76 18 118/64 95 Room Air 12/08/24 23:42 36.6 C 67 18 129/73 97 Room Air Laboratory Results Cardiac Enzymes 12/09/24 Range/Units 04:16 AST 31 (13-39) U/L Comprehensive Metabolic Panel 12/09/24 Range/Units 04:16 Sodium 139 (136-145) mmol/L Potassium 3.5 (3.5-5.1) mmol/L Chloride 104 (98-107) mmol/L Carbon Dioxide 28 (21-32) mmol/L BUN 7 (6-23) mg/dl Creatinine 0.75 (0.6-1.2) mg/dl Glucose 89 (70-99(Fasting)) mg/dl Calcium 8.6 (8.6-10.3) mg/dl AST 31 (13-39) U/L ALT 50 (7-52) U/L Alkaline Phosphatase 60 (34-104) U/L Total Protein 6.6 (6.0-8.3) gm/dl Albumin 3.7 (3.4-5.0) gm/dl Intake and Output 12/08/24 12/09/24 12/09/24 22:59 06:59 14:59 Intake Total 500 / 1260.0 300 / 1260.0 Output Total 500 / 1000 Balance 500 / 260.0 -200 / 260.0 Intake: IV 100 / 200.0 Magnesium Sulfate / D5w 1 gm In 100 / 200.0 100 ml @ 50 mls/hr IV Q2H AISHWARYA Rx#:[id number] Oral 400 / 1060 300 / 1060 Output: Urine 500 / 1000 Other: # Unmeasured Voids 1 Weight 164 kg Weight Measurement Method Built in [facility] Diagnostic Findings Telemetry reviewed: NSR and sinus bradycardia with HR's ranging predominantly in the 50-80's. Sometimes dipping into the 40's while asleep/at rest. No symptoms. No pauses or high degree AV block Medications Administered Current Inpatient Medications Acetaminophen (Acetaminophen 325 Mg Tab) 650 mg PO Q4H PRN PRN Reason: Pain or Fever Stop: 01/05/25 15:37 Atropine Sulfate (Atropine Sulfate 0.1 Mg/Ml 10ml Syr) 0.5 mg IV Q4 PRN PRN Reason: symptomatic bradycardia<35 Stop: 01/05/25 16:15 Dextrose (Dextrose 50% 50 Ml Syringe) 25 - 50 ml IV UD PRN; Protocol PRN Reason: Hypoglycemia Protocol Stop: 01/05/25 13:55 Digoxin (Digoxin 0.125 Mg Tab) 0.125 mg PO [id number] [facility] Stop: 01/08/25 11:14 Enoxaparin Sodium (Enoxaparin Inj 40 Mg/0.4 Ml Syr) 40 mg SQ Q24H [facility] Stop: 01/05/25 15:44 Last Admin: 12/08/24 15:28 Dose: 40 mg Glucagon (Glucagon For Inj 1 Mg Vial) 1 mg SQ UD PRN; Protocol PRN Reason: Hypoglycemia Protocol Stop: 01/05/25 13:55 Glucose (Glucose 40% Gel 15 Gm Tube) 15 - 30 gm PO UD PRN; Protocol PRN Reason: Hypoglycemia Protocol Stop: 01/05/25 13:55 Glucose (Glucose 10 Tab/Tube) 4 - 8 tab PO UD PRN; Protocol PRN Reason: Hypoglycemia Protocol Stop: 01/05/25 13:55 Ondansetron HCl (Ondansetron Inj 2 Mg/Ml 2 Ml Vial) 4 mg IV Q6H PRN PRN Reason: Nausea And Vomiting Stop: 01/05/25 14:30 Last Admin: 12/06/24 14:59 Dose: 4 mg Polyethylene Glycol (Polyethylene (Miralax) 17 Gm Pack) 17 gm PO DAILY PRN PRN Reason: Constipation Stop: 01/05/25 15:37 PG Care Time/CCT Total # of Minutes Spent Total Time Spent with Patient: Total time spent is greater than 50% in coordination of care (as documented) at patient's floor/unit and/or counseling patient:30 Coding Level of Care Code 95141 SUB INP/OBS CARE 3/50MIN History Detailed Exam Detailed Medical Decision Making High Complexity Diagnoses Suicide attempt by beta-adrenergic antagonist overdose, initial encounter T44.7X2A Encounter type: initial encounter Bradycardia R00.1 Super obesity E66.9 Time Spent (min) 60 Comment 30 minutes were spent by Derek Curry PA-C, and [address] Evans (1) Suicide attempt by beta deanne overdose Encounter type: initial encounter Qualified Code(s): T44.7X2A - Poisoning by beta-adrenoreceptor antagonists, intentional self-harm, initial encounter
[2024-12-09] MEDS: DIGOXIN 0.125 MG TAB PO SCH (11:42)
[2024-12-09] MEDS: SODIUM CHLORIDE 0.9% 1,000 ML IV SCH (16:39)
--- NOTE | 2024-12-09 17:21 | Hospitalist Progress Note ---
Date of Service December 09, 2024 Assessment & Plan (1) Suicide attempt by beta deanne overdose: Plan: per Dr. Abdi's notes with addendum: (1) Suicide attempt by beta deanne overdose: Plan: -patient attempted to overdose on metoprolol, taking around 1000 mg at one time -came to hospital for palpitations -ECG with QTc of 430, acceptable QRS complex size -given atropine in ED for bradycardia into 30s Plan: -psych consult, appreciate recs (order placed) -K>4, Mg>2 -monitor for hypoglycemia episodes -start LR maintenance fluids to assist with toxin elimination -zofran for nausea if needed (cant do metoclopramide due to suicide attempt) -atropine prn for symptomatic bradycardia -echo ordered -admit to PCU for further monitoring -if further symptomatic bradycardia can consider epinephrine infusion 8/6 HR in the 60s cleared by Cardiology reporting chest pain with deep inspiration D dimer: 700s check CT angio chest and Doppler US BL lower leg (2) ZACH (generalized anxiety disorder): Plan: -see above (3) Super obesity: Plan: -f/u outpatient (2) ZACH (generalized anxiety disorder): Plan: -see above (3) Super obesity: Plan: -f/u outpatient Will need to have outpatient polysomnography to rule out any obstructive sleep apnea DVT prophylaxis Subcu Lovenox CODE STATUSfull Admission and Anticipated Discharge Date Admission Date: December 06, 2024 Subjective ff up for Metoprolol overdose, etc seen with SANDRA Clinton at bedside throughout whole encounter sitting up, comfortable states she has some central chest discomfort when taking a deep breath denies shortness of breath, cough no palpitations, dizziness no other symptoms Review of Systems Review of Systems: all noted and negative except for above Physical Exam Physical Exam: General- oriented x 3, not in distress, speaks in sentences with no effort or accessory muscle use Eyes- anicteric Neck- no JVD Lungs- clear breath sounds bilaterally, no rales/wheezes Heart- normal rate, regular rhythm; no murmurs Abdomen- normal bowel sounds, nondistended, soft, nontender Extremities- no pretibial edema, no calf tenderness Neuro- alert, oriented x 3; no gross focal neurologic deficits Skin- warm & dry Results & Data Results & Data Vital Signs (Past 12 Hours) Vital Signs Temp Pulse Pulse Resp BP Pulse Ox O2 Del Method 12/09/24 15:41 37.0 C 73 18 158/102 H 98 Room Air 12/09/24 10:56 36.9 C 80 17 193/87 H 97 Room Air 12/09/24 07:29 Room Air 12/09/24 07:29 43 L 12/09/24 07:20 36.7 C 66 18 159/82 H 97 Room Air all noted and reviewed including below (1) Suicide attempt by beta deanne overdose Encounter type: initial encounter Qualified Code(s): T44.7X2A - Poisoning by beta-adrenoreceptor antagonists, intentional self-harm, initial encounter
[2024-12-09] MEDS: OPTIRAY 320 125ml IV ONE (17:49)
--- NOTE | 2024-12-09 18:19 | CT Scan Report ---
Clinical history: Chest pain and elevated d-dimer Technique: Axial computed tomography images were obtained of the chest after the administration of intravenous contrast according to the CT angiogram protocol Findings: There is no definite sign of pulmonary embolism. There is a small area of centrilobular interstitial opacity in the right lung apex, concerning for bronchopneumonia. There is no pleural effusion or pneumothorax. There is no sign of pulmonary fibrosis or other diffuse interstitial process. No endobronchial lesion is seen There is no mediastinal, hilar, or axillary adenopathy. The thoracic aorta appears unremarkable with no sign of aneurysm or dissection. There is no pericardial effusion The gallbladder has been removed. No fracture is seen. No focal osseous lesion is evident Impression: 1. No definite sign of pulmonary embolism 2. Suspected small area of bronchopneumonia in the right upper lobe Electronically signed by Arun Richard 12-09-2024 6:18 PM
--- NOTE | 2024-12-09 18:27 | Ultrasound Report ---
Clinical History: Rule out DVT Technique: Venous ultrasound evaluation was performed utilizing grayscale, color Doppler and wave form evaluation. Images were also obtained with and without compression Findings: The bilateral common femoral, superficial femoral, popliteal, and visualized calf veins demonstrate normal anechoic lumens with full compressibility. Normal flow is seen on color Doppler images. Expected waveforms were produced with augmentation maneuvers Impression: No evidence of deep venous thrombosis Electronically signed by Arun Richard 12-09-2024 6:26 PM
[2024-12-09] MEDS: cefTRIAXone SODIUM 2,000 MG/50 ML BAG IV SCH (19:23)
[2024-12-09] MEDS: DOXYCYCLINE HYCLATE 100 MG CAP PO SCH (20:17)
[2024-12-10 07:29] VITALS: RESP 18
[2024-12-10 09:53] LABS: Anion Gap 7.0 (3-11); Blood Urea Nitrogen 8.0 mg/dl (6-23); Calcium 8.9 mg/dl (8.6-10.3); Carbon Dioxide 27.0 mmol/L (21-32); Chloride 104.0 mmol/L (98-107); Creatinine Clr Calc Pharmacy 154.9 ml/min; Glucose 87.0 mg/dl (70-99(Fasting)); Magnesium 1.8 mg/dl (1.7-2.4); Potassium 3.6 mmol/L (3.5-5.1); Sodium 138.0 mmol/L (136-145)
--- NOTE | 2024-12-10 10:51 | Cardiology Progress Note ---
Date of Service December 10, 2024 Assessment & Plan (1) Suicide attempt by beta deanne overdose: (2) Bradycardia: (3) Super obesity: (4) Labile hypertension: Plan 12/07/24 Patient admitted after a suicide attempt with beta blockers. She reportedly took approx 2000 mg of metoprolol tartrate 50 mg tabs morning of 12/06 around 8:00 AM While in the ER, she was treated with one dose of atropine for symptomatic bradycardia with HR in the low 30's. Overnight, HR's have improved, HR ranging 30-60s. No symptoms currently. Per poison control, if she has recurrent symptomatic bradycardia, start epinephrine gtt. No indication for glucagon gtt. Echo this morning with preserved LVEF, mild concentric LVH, and no significant valvular disease. Repeat EKG this morning - ordered Continue on telemetry Patient was hypertensive on arrival, then hypotensive last evening. BP acceptable this morning. Will avoid additional antihypertensives for now. Monitor. Anticipate HR's will improve with time and as metoprolol metabolizes out of her system. No indication for temporary pacemaker at this time. 12/08/24: No events overnight. Remains NSR and HR's have improved compared to yesterday, now mostly in the 50- 60's While sleeping/at rest, she does drop into the 30 and 40's on telemetry. No symptoms. No symptomatic bradycardia. Avoid AV dimitri blocking agents. Recommend evaluation for MORENITA. Replace magnesium 2 grams this morning Per poison control, if she develops symptomatic bradycardia, start epinephrine gtt. Monitor for hypoglycemia. Echo with preserved LVEF, mild LVH, no significant valvular disease. BP improved. No indication for antihypertensive therapy. 12/09/24: HR's continue to improve. Currently NSR in the 50 and 60's. No prolonged R to R intervals. No symptomatic bradycardia. Echo with preserved LVEF, mild LVH, no significant valvular disease No further cardiac testing required. Would recommend outpatient evaluation for MORENITA. 12/10/24: Patient with episode of chest pain yesterday, pleuritic in nature associated with cough and SOB. D.dimer was elevated, thus she underwent chest CTA which was negative for acute PE. findings consistent with possible pneumonia and she was started on antibiotics. Symptoms improved this morning. Venous duplex also negative for DVT. Continue antibiotics per hospitalist. QT/QTc stable. Labile BP readings noted since admission. BP taken with larger cuff and readings improved. will need to monitor BP as outpatient. We have been hesitant to initiate therapies due to risks of repeated overdose with prescription medications. Weight loss encouraged and evaluation for MORENITA also recommended for non pharmacologic treatments of HTN at this time. HR's also improved. No symptomatic events. Avoid AV dimitri blocking therapies. Stable from cardiac standpoint to transfer to [facility] for ongoing treatment of mental health disorders. Case discussed with Dr. Evans I spent a total of 30 minutes on the date of service in preparation, delivery, and documentation of the care provided to this patient, excluding any time spent in the performance of separately billed services. Lorrie Curry PA-C Department of Cardiology, [facility] This chart was completed in part utilizing Speech Voice Recognition Software. Grammatical errors, random word insertions, pronoun errors, and incomplete sentences are an occasional consequence of this system due to software limitations, ambient noise, and hardware issues. Any formal questions or concerns about the content, text, or information contained within the body of this dictation should be directly addressed to the provider for clarification. Admission and Anticipated Discharge Date Admission Date: December 06, 2024 Supervising Physician Co-Signing Physician Notes I have personally performed a history and physical examination on the patient. I have reviewed the advance practitioner's documentation, and I agree with, and take responsibility for the plan of care. Patient without any acute complaints. He feels slight tight sensation in her chest with deep inspiration. CTA chest negative for pulmonary [place], suggestion of pneumonia developing in the right upper lobe. EKG performed today 12/10/2024 reviewed/interpreted independently reveals sinus rhythm at 60 bpm, normal ND interval, 146 ms, normal QRS duration 90 ms, normal QT interval 424 ms. Stable findings. Per my review, telemetry reveals stable findings, sinus rhythm in the 60s to 70s. Lowest heart rate 50 to 60s overnight last night. Impression: Recovery from beta-deanne overdose going well with normalization of heart rates. There are some high blood pressure readings, however her blood pressure was repeated with the appropriately sized cuff with normal readings noted. It is not felt that pharmacologic intervention for hypertension is indicated. I think it is reasonable to treat her for developing pneumonia with an oral course of levofloxacin with noted normal QT interval. Stable from cardiology perspective for transfer to the third floor inpatient mental health unit. Senthil Evans, I spent a total of 30 minutes on the date of service in preparation, delivery, and documentation of the care provided to this patient, excluding any time spent in the performance of separately billed services. Subjective Patient sitting at edge of bed. Feeling well. She had pleuritic chest pain and SOB yesterday afternoon. D.Dimer was found to be elevated. She underwent chest CT to r/o PE which was negative for acute pulmonary embolus but did show signs of possible pneumonia. She was started on antibiotics. Venous duplex was also negative for DVT. This morning she is feeling much better. No SOB or recurrent chest pain. Cough also improved. Labile BP readings noted with automatic cuff. Larger cuff was placed and improved readings noted/BP controlled. Hr's also improved on telemetry. Currently in the 60's. Physical Exam Constitutional: WD/WN, vitals as above + morbidly obese; no acute distress Neck: + thick neck Respiratory: normal respiratory effort; no respiratory distress and no labored breathing Auscultation: lungs clear to auscultation bilaterally; no rales, no rhonchi and no wheezes Cardiovascular: Rate/Rhythm: regular rate and regular rhythm Heart Sounds: no murmur (distant heart sounds. no audible murmur) Vessels: no JVD Extremities: no edema Gastrointestinal (Abdomen): normal bowel sounds, soft, nontender, no hepatosplenomegaly Musculoskeletal: no cyanosis or clubbing, extremities motor strength 5/5 Neurologic: PERRL, EOMI, accommodation nl, no face palsy, no dysarthria Psychiatric: A+Ox3, euthymic affect Results & Data Vital Signs (Past 12 Hours) Vital Signs Temp Pulse Pulse Resp BP BP Pulse Ox 12/10/24 07:27 37.0 C 83 18 167/101 H 97 12/10/24 07:17 57 L 12/09/24 23:11 12/09/24 23:01 37.0 C 65 19 144/90 H 96 O2 Del Method 12/10/24 07:27 Room Air 12/10/24 07:17 12/09/24 23:11 Room Air 12/09/24 23:01 Room Air Laboratory Results Comprehensive Metabolic Panel 12/10/24 Range/Units 09:09 Sodium 138 (136-145) mmol/L Potassium 3.6 (3.5-5.1) mmol/L Chloride 104 (98-107) mmol/L Carbon Dioxide 27 (21-32) mmol/L BUN 8 (6-23) mg/dl Creatinine 0.84 (0.6-1.2) mg/dl Glucose 87 (70-99(Fasting)) mg/dl Calcium 8.9 (8.6-10.3) mg/dl Intake and Output 12/09/24 12/10/24 12/10/24 22:59 06:59 14:59 Intake Total 410 / 2390 1500 / 2390 1000 / 1000 Balance 410 / 2390 1500 / 2390 1000 / 1000 Intake: IV 50 / 1050 1000 / 1050 1000 / 1000 Sodium Chloride 0.9% 1,000 ml @ 1000 / 1000 1000 / 1000 125 mls/hr IV .Q8H AISHWARYA Rx#: [id number] [id number] SODIUM 2,000 mg In 50 / 50 50 ml @ 100 mls/hr IV Q24H AISHWARYA Rx#:[id number] Oral 360 / 1340 500 / 1340 Other: # Unmeasured Voids 2 2 Weight 160.4 kg Weight Measurement Method Built in [facility] Diagnostic Findings Telemetry reviewed: NSR in the 60's. No significant bradycardia EKG reviewed today: NSR, normal EKG QT/QTc 424 ms/424 ms Chest CTA 12/09/24 15:53 Clinical history: Chest pain and elevated d-dimer Technique: Axial computed tomography images were obtained of the chest after the administration of intravenous contrast according to the CT angiogram protocol Findings: There is no definite sign of pulmonary embolism. There is a small area of centrilobular interstitial opacity in the right lung apex, concerning for bronchopneumonia. There is no pleural effusion or pneumothorax. There is no sign of pulmonary fibrosis or other diffuse interstitial process. No endobronchial lesion is seen There is no mediastinal, hilar, or axillary adenopathy. The thoracic aorta appears unremarkable with no sign of aneurysm or dissection. There is no pericardial effusion The gallbladder has been removed. No fracture is seen. No focal osseous lesion is evident Impression: 1. No definite sign of pulmonary embolism 2. Suspected small area of bronchopneumonia in the right upper lobe Electronically signed by Arun Richard 12-09-2024 6:18 PM Venous Doppler Study 12/09/24 15:53 Clinical History: Rule out DVT Technique: Venous ultrasound evaluation was performed utilizing grayscale, color Doppler and wave form evaluation. Images were also obtained with and without compression Findings: The bilateral common femoral, superficial femoral, popliteal, and visualized calf veins demonstrate normal anechoic lumens with full compressibility. Normal flow is seen on color Doppler images. Expected waveforms were produced with augmentation maneuvers Impression: No evidence of deep venous thrombosis Electronically signed by Arun Richard 12-09-2024 6:26 PM Medications Administered Current Inpatient Medications Acetaminophen (Acetaminophen 325 Mg Tab) 650 mg PO Q4H PRN PRN Reason: Pain or Fever Stop: 01/05/25 15:37 Atropine Sulfate (Atropine Sulfate 0.1 Mg/Ml 10ml Syr) 0.5 mg IV Q4 PRN PRN Reason: symptomatic bradycardia<35 Stop: 01/05/25 16:15 Dextrose (Dextrose 50% 50 Ml Syringe) 25 - 50 ml IV UD PRN; Protocol PRN Reason: Hypoglycemia Protocol Stop: 01/05/25 13:55 Doxycycline Hyclate (Doxycycline Hyclate 100 Mg Cap) 100 mg PO BID AISHWARYA Stop: 12/14/24 20:59 Last Admin: 12/10/24 08:51 Dose: 100 mg Enoxaparin Sodium (Enoxaparin Inj 40 Mg/0.4 Ml Syr) 40 mg SQ Q24H AISHWARYA Stop: 01/05/25 15:44 Last Admin: 12/09/24 16:39 Dose: 40 mg Glucagon (Glucagon For Inj 1 Mg Vial) 1 mg SQ UD PRN; Protocol PRN Reason: Hypoglycemia Protocol Stop: 01/05/25 13:55 Glucose (Glucose 40% Gel 15 Gm Tube) 15 - 30 gm PO UD PRN; Protocol PRN Reason: Hypoglycemia Protocol Stop: 01/05/25 13:55 Glucose (Glucose 10 Tab/Tube) 4 - 8 tab PO UD PRN; Protocol PRN Reason: Hypoglycemia Protocol Stop: 01/05/25 13:55 Hydroxyzine HCl (Hydroxyzine Hcl 25 Mg Tab) 25 mg PO QID PRN PRN Reason: Anxiety Stop: 01/08/25 22:43 Last Admin: 12/09/24 22:55 Dose: 25 mg Sodium Chloride (Nss) 1,000 mls @ 125 mls/hr IV .Q8H AISHWARYA Stop: 12/12/24 15:59 Last Admin: 12/10/24 08:51 Dose: 125 mls/hr Ceftriaxone Sodium (Rocephin) 2,000 mg in 50 mls @ 100 mls/hr IV Q24H AISHWARYA Stop: 12/14/24 18:44 Last Infusion: 12/09/24 19:58 Dose: Infused Ondansetron HCl (Ondansetron Inj 2 Mg/Ml 2 Ml Vial) 4 mg IV Q6H PRN PRN Reason: Nausea And Vomiting Stop: 01/05/25 14:30 Last Admin: 12/06/24 14:59 Dose: 4 mg Pantoprazole Sodium (Pantoprazole 40 Mg Tab) 40 mg PO HS AISHWARYA Stop: 01/08/25 21:49 Last Admin: 12/09/24 22:06 Dose: 40 mg Polyethylene Glycol (Polyethylene (Miralax) 17 Gm Pack) 17 gm PO DAILY PRN PRN Reason: Constipation Stop: 01/05/25 15:37 Coding Level of Care Code 87969 SUB INP/OBS CARE 3/50MIN History Detailed Exam Detailed Medical Decision Making High Complexity Diagnoses Suicide attempt by beta-adrenergic antagonist overdose, initial encounter T44.7X2A Encounter type: initial encounter Bradycardia R00.1 Super obesity E66.9 Labile hypertension R09.89 Time Spent (min) 60 Comment 30 minutes by Derek Curry, and [address] Evans (1) Suicide attempt by beta deanne overdose Encounter type: initial encounter Qualified Code(s): T44.7X2A - Poisoning by beta-adrenoreceptor antagonists, intentional self-harm, initial encounter
[2024-12-10 10:54] VITALS: BP 128/86; TEMP 98.1
--- NOTE | 2024-12-10 11:52 | Electrocardiogram Report ---
Test Reason : Blood Pressure : */* mmHG Vent. Rate : 60 BPM Atrial Rate : 60 BPM P-R Int : 146 ms QRS Dur : 90 ms QT Int : 424 ms P-R-T Axes : 38 25 18 degrees QTcB Int : 424 ms Normal sinus rhythm Normal ECG When compared with ECG of 08-Dec-2024 08:29, No significant change was found Confirmed by Ralph Daley ([id number]) on 12/10/2024 11:51:52 AM Referred By: REFERRED SELF Confirmed By: Ralph Daley
--- NOTE | 2024-12-10 13:12 | Psychiatric Progress Note ---
Date of Service December 10, 2024 Impression / Recommendations Impression Patient presents with suicide attempt via overdose of prescribed metoprolol. Patient has been planning her attempt prior to recent ingestion and presents a history of past attempt. Symptoms consistent with borderline PD, generalized anxiety disorder. Does not appear to be a in major mood episode at this time. Patient remains at high risk for repeat attempt and does not present a safe and rational discharge plan. She would benefit from inpatient psychiatry admission upon medical stabilization for safety, medication management, and aftercare planning. 12/10/2024: Now medically stable, awaiting COVID test and then plan for inpatient psychiatric hospitalization on [facility] pending negative result. She is agreeable to 201/voluntary stay. Overall, I spent a total of 45 minutes with this case including review of chart records, review of labwork, direct evaluation of the patient at bedside, counseling the patient, discussion of the patient with the Nurse and with the hospitalist provider, discussion with the psychiatric liason during clinical rounds and documentation in the electronic health record. (1) Suicide attempt by beta deanne overdose: (2) Borderline personality disorder: (3) ZACH (generalized anxiety disorder): (4) Depression: Plan Plan for inpatient psychiatry admission pending negative COVID result The patient should remain on safety precautions with 1-on-1 until admitted to [facility]. The patient is not psychiatrically cleared to leave the hospital; theyshould not be allowed to leave AMA without notification to our service as a 302 warrant may be appropriate. Interval History Identifying Information 29 y/o F h/o ZACH who presents with overdose of her metoprolol as a suicide attempt and presented to the hospital with complaints of palpitations. Psychiatry consulted for safety assessment and evaluation. Chief Complaint "Doing ok". Subjective Subjective Patient was seen & assessed and interval progress reviewed. Reports no chest pain or medical concerns today. Agreeable to voluntary inpatient psychiatric treatment. Feels able to talk with staff if she needed more support. Physical Exam Vital Signs (Past 24 Hours) Last Vital Signs Temp 36.7 C 12/10/24 10:54 Pulse 69 12/10/24 10:54 Resp 18 12/10/24 10:54 BP 128/86 12/10/24 10:54 Pulse Ox 97 12/10/24 10:54 O2 Del Method Room Air 12/10/24 10:54 Results & Data ([facility]) Laboratory Results Laboratory Results - last 24 hr 12/09/24 12/09/24 12/09/24 14:31 15:56 20:17 D-Dimer 790 H* Sodium Potassium Chloride Carbon Dioxide Anion Gap BUN Creatinine Est Cr Clr Drug Dosing eGFR BUN/Creatinine Ratio Glucose POC Glucose 82 92 Calcium Magnesium SARS-CoV-2 (PCR) 12/10/24 12/10/24 12/10/24 07:09 09:09 Unknown D-Dimer Sodium 138 Potassium 3.6 Chloride 104 Carbon Dioxide 27 Anion Gap 7 BUN 8 Creatinine 0.84 Est Cr Clr Drug Dosing 154.9 eGFR 95.22 BUN/Creatinine Ratio 9.5 L Glucose 87 POC Glucose 97 Calcium 8.9 Magnesium 1.8 SARS-CoV-2 (PCR) NEGATIVE Current Inpatient Medications Current Inpatient Medications: Current Inpatient Medications Acetaminophen (Acetaminophen 325 Mg Tab) 650 mg PO Q4H PRN PRN Reason: Pain or Fever Stop: 01/05/25 15:37 Atropine Sulfate (Atropine Sulfate 0.1 Mg/Ml 10ml Syr) 0.5 mg IV Q4 PRN PRN Reason: symptomatic bradycardia<35 Stop: 01/05/25 16:15 Dextrose (Dextrose 50% 50 Ml Syringe) 25 - 50 ml IV UD PRN; Protocol PRN Reason: Hypoglycemia Protocol Stop: 01/05/25 13:55 Enoxaparin Sodium (Enoxaparin Inj 40 Mg/0.4 Ml Syr) 40 mg SQ Q24H AISHWARYA Stop: 01/05/25 15:44 Last Admin: 12/09/24 16:39 Dose: 40 mg Glucagon (Glucagon For Inj 1 Mg Vial) 1 mg SQ UD PRN; Protocol PRN Reason: Hypoglycemia Protocol Stop: 01/05/25 13:55 Glucose (Glucose 40% Gel 15 Gm Tube) 15 - 30 gm PO UD PRN; Protocol PRN Reason: Hypoglycemia Protocol Stop: 01/05/25 13:55 Glucose (Glucose 10 Tab/Tube) 4 - 8 tab PO UD PRN; Protocol PRN Reason: Hypoglycemia Protocol Stop: 01/05/25 13:55 Hydroxyzine HCl (Hydroxyzine Hcl 25 Mg Tab) 25 mg PO QID PRN PRN Reason: Anxiety Stop: 01/08/25 22:43 Last Admin: 12/09/24 22:55 Dose: 25 mg Sodium Chloride (Nss) 1,000 mls @ 125 mls/hr IV .Q8H AISHWARYA Stop: 12/12/24 15:59 Last Admin: 12/10/24 08:51 Dose: 125 mls/hr Levofloxacin (Levofloxacin 750 Mg Tab) 750 mg PO Q24H AISHWARYA; Protocol Stop: 12/17/24 17:59 Ondansetron HCl (Ondansetron Inj 2 Mg/Ml 2 Ml Vial) 4 mg IV Q6H PRN PRN Reason: Nausea And Vomiting Stop: 01/05/25 14:30 Last Admin: 12/06/24 14:59 Dose: 4 mg Pantoprazole Sodium (Pantoprazole 40 Mg Tab) 40 mg PO HS [facility] Stop: 01/08/25 21:49 Last Admin: 12/09/24 22:06 Dose: 40 mg Polyethylene Glycol (Polyethylene (Miralax) 17 Gm Pack) 17 gm PO DAILY PRN PRN Reason: Constipation Stop: 01/05/25 15:37 (1) Suicide attempt by beta deanne overdose Encounter type: initial encounter Qualified Code(s): T44.7X2A - Poisoning by beta-adrenoreceptor antagonists, intentional self-harm, initial encounter
--- NOTE | 2024-12-10 15:57 | Hospitalist Progress Note ---
Date of Service December 10, 2024 Assessment & Plan (1) Suicide attempt by beta deanne overdose: Plan: per Dr. Abdi's notes with addendum: Suicide attempt by beta deanne overdose: Plan: -patient attempted to overdose on metoprolol, taking around 1000 mg at one time -came to hospital for palpitations -ECG with QTc of 430, acceptable QRS complex size -given atropine in ED for bradycardia into 30s Plan: -psych consult, appreciate recs (order placed) -K>4, Mg>2 -monitor for hypoglycemia episodes -start LR maintenance fluids to assist with toxin elimination -zofran for nausea if needed (cant do metoclopramide due to suicide attempt) -atropine prn for symptomatic bradycardia -echo ordered -admit to PCU for further monitoring -if further symptomatic bradycardia can consider epinephrine infusion 8/7 HR in the 70s QTc 420s cleared by Cardiology Service for discharge transition to behavioral unit today for further inpatient psychiatric treatment Right upper lobe pneumonia reporting chest pain with deep inspiration D dimer: 700s CT chest: 1. No definite sign of pulmonary embolism 2. Suspected small area of bronchopneumonia in the right upper lobe Doppler US: no DVT -- Levaquin 750mg po daily x 7 days Probiotics daily ZACH (generalized anxiety disorder): -- transition to [facility] Super obesity: Plan: -f/u outpatient -recommend outpatient Sleep study for workup of possible underlying obstructive sleep apnea (2) ZACH (generalized anxiety disorder): (3) Super obesity: Admission and Anticipated Discharge Date Admission Date: December 06, 2024 Subjective SLAB INST[employer]ER at the bedside throughout whole encounter Seen resting in bed comfortable, not in distress in good spirits States she feels fine overall Chest discomfort, shortness of breath resolved Denies cough, fevers or chills No palpitations, dizziness Ambulating with no problems No other new symptoms States she is ready to transition to behavioral unit Review of Systems Review of Systems: all noted and negative except for above Physical Exam Physical Exam: General- oriented x 3, not in distress, speaks in sentences with no effort or accessory muscle use Eyes- anicteric Neck- no JVD Lungs- clear breath sounds bilaterally, no crackles or wheezing Heart- normal rate, regular rhythm; no murmurs Abdomen- normal bowel sounds, nondistended, soft, no tenderness Extremities- no pretibial edema, no calf tenderness Neuro- alert, oriented x 3; no gross focal neurologic deficits Skin- warm & dry Results & Data Results & Data Vital Signs (Past 12 Hours) Vital Signs Temp Pulse Pulse Resp BP Pulse Ox O2 Del Method 12/10/24 10:54 36.7 C 69 18 128/86 97 Room Air 12/10/24 07:27 37.0 C 83 18 167/101 H 97 Room Air 12/10/24 07:17 57 L all noted and reviewed including below (1) Suicide attempt by beta deanne overdose Encounter type: initial encounter Qualified Code(s): T44.7X2A - Poisoning by beta-adrenoreceptor antagonists, intentional self-harm, initial encounter
--- NOTE | 2024-12-10 15:59 | Discharge Summary ---
Discharge Summary Date of Service December 10, 2024 Principal Dx & Hospital Course #1 = Principal Diagnosis (1) Suicide attempt by beta deanne overdose: per Dr. Abdi's notes with addendum: Suicide attempt by beta deanne overdose: Plan: -patient attempted to overdose on metoprolol, taking around 1000 mg at one time -came to hospital for palpitations -ECG with QTc of 430, acceptable QRS complex size -given atropine in ED for bradycardia into 30s Plan: -psych consult, appreciate recs (order placed) -K>4, Mg>2 -monitor for hypoglycemia episodes -start LR maintenance fluids to assist with toxin elimination -zofran for nausea if needed (cant do metoclopramide due to suicide attempt) -atropine prn for symptomatic bradycardia -echo ordered -admit to PCU for further monitoring -if further symptomatic bradycardia can consider epinephrine infusion 8/7 HR in the 70s QTc 420s cleared by Cardiology Service for discharge transition to behavioral unit today for further inpatient psychiatric treatment Right upper lobe pneumonia reporting chest pain with deep inspiration D dimer: 700s CT chest: 1. No definite sign of pulmonary embolism 2. Suspected small area of bronchopneumonia in the right upper lobe Doppler US: no DVT -- Levaquin 750mg po daily x 7 days Probiotics daily ZACH (generalized anxiety disorder): -- transition to [facility] Super obesity: Plan: -f/u outpatient -recommend outpatient Sleep study for workup of possible underlying obstructive sleep apnea (2) ZACH (generalized anxiety disorder): (3) Super obesity: Notes For Next Care Provider Medication Changes From Visit Levaquin 750 mg p.o. daily x 7 days Probiotics daily x 10 days Admission HPI Per Admitting Provider 29 yo female with pmhx of panic disorder/ZACH, migraines, hx of suicide attempts who presents for suicide attempt. No past admissions at this institution or at [facility]. In the ED, given fluids and atropine for bradycardia, poison control contacted, admitted to medicine for close monitoring and further workup. Patient seen and examined at bedside. Patient states she drove to a hotel in [place] to get away from home, lives in [place], [place]. In [place] last evening, thought about overdosing with her meds but did not. This morning around 7:30 am, she took a large quantity (1000mg per patient) of metoprolol, and 13 excedrin. States she was driving back home today when she decided she wanted to be evaluated and worked up for a suicide attempt. Per patient she is no longer having suicideal ideation. She has intrusive thoughts. She has no plan at this time. She states she is scared about losing everything, and the intrusive thoughts told her to kill herself. She state she has tried to kill herself in past and has inpatient psychiatric stays before. She takes no meds at home. Was recently prescribed wellbutryin and propranolol for anxiety but has not taken any. Vapes, no alcohol use, no drug use, full code. Admission Exam Per Admitting Provider Gen: A&O 3 NAD, large body habitus HEENT: NCAT, EOMI, not icteric. External ears normal. No rhinorrhea. Moist mucous membranes. Neck: Supple, full range of motion, no observable masses, No meningeal sign. Lungs: No Respiratory distress. CV: RRR, no edema. Abdomen: Soft, nondistended, No rebound tenderness. MSK: No joint swelling, no redness. Skin: No rashes, petechiae, lesions. Normal color per patient. Neuro: Normal Gait, Grossly intact. Psych: denies sucidieal ideation, very flat affect, endorses intrusive thoughts, denies hallucinations Discharge Exam General- oriented x 3, not in distress, speaks in sentences with no effort or accessory muscle use Eyes- anicteric Neck- no JVD Lungs- clear breath sounds bilaterally, no rales/wheezes Heart- normal rate, regular rhythm; no murmurs Abdomen- normal bowel sounds, nondistended, soft, nontender Extremities- no pretibial edema, no calf tenderness Neuro- alert, oriented x 3; no gross focal neurologic deficits Skin- warm & dry Updated Medication List Medication Instructions Recorded Confirmed Type Metoprolol Tablets 0 mg PO DAILY 12/06/24 12/06/24 History omeprazole 40 mg PO HS 12/09/24 12/09/24 History Lactobacillus acidoph-L.bulgaricus 1 tab PO DAILY #10 tabs 12/10/24 Rx 1 million cell tablet (Floranex) levofloxacin 750 mg tablet 750 mg PO Q24H 7 days #7 tabs 12/10/24 Rx Hospital Stay Data Consultations 12/06/24 16:25 Consult Psychiatry Routine 12/07/24 08:00 Consult Cardiology Routine Diagnostic Imagining Performed Laboratory Results WBC 9.98 K/ul (4.8-10.8) 12/07/24 06:00 RBC 4.36 M/uL (4.20-5.40) 12/07/24 06:00 Hgb 12.4 g/dl (12.0-16.0) 12/07/24 06:00 Hct 38.9 % (37.0-47.0) 12/07/24 06:00 MCV 89.2 fL (80.0-100.0) 12/07/24 06:00 MCH 28.4 pg (25.0-34.0) 12/07/24 06:00 MCHC 31.9 g/dL (32.0-36.0) L 12/07/24 06:00 RDW Std Deviation 48.7 fL (36.4-46.3) H 12/07/24 06:00 RDW Coeff of Miles 14.9 % (11.5-14.5) H 12/07/24 06:00 Plt Count 187 K/uL (130-400) 12/07/24 06:00 MPV 11.8 fL (9.4-12.4) 12/07/24 06:00 Immature Gran % (Auto) 0.3 % 12/06/24 12:50 Neut % (Auto) 64.8 % 12/06/24 12:50 Lymph % (Auto) 29.3 % 12/06/24 12:50 Roosevelt % (Auto) 4.0 % 12/06/24 12:50 Eos % (Auto) 1.4 % 12/06/24 12:50 Baso % (Auto) 0.2 % 12/06/24 12:50 Neut # (Auto) 8.97 K/uL (1.40-6.50) H 12/06/24 12:50 Lymph # (Auto) 4.06 K/uL (1.20-3.40) H 12/06/24 12:50 Roosevelt # (Auto) 0.55 K/uL (0.11-0.59) 12/06/24 12:50 Eos # (Auto) 0.19 K/uL (0.00-0.50) 12/06/24 12:50 Baso # (Auto) 0.03 K/uL (0.00-0.20) 12/06/24 12:50 Immature Gran # (Auto) 0.04 K/uL (0.01-0.20) 12/06/24 12:50 PT 10.4 Seconds (9.0-12.0) 12/06/24 12:50 INR 1.0 (0.9-1.1) 12/06/24 12:50 D-Dimer 790 ug/L FEU (0-500) H* 12/09/24 14:31 Sodium 138 mmol/L (136-145) 12/10/24 09:09 Potassium 3.6 mmol/L (3.5-5.1) 12/10/24 09:09 Chloride 104 mmol/L (98-107) 12/10/24 09:09 Carbon Dioxide 27 mmol/L (21-32) 12/10/24 09:09 Anion Gap 7 (3-11) 12/10/24 09:09 BUN 8 mg/dl (6-23) 12/10/24 09:09 Creatinine 0.84 mg/dl (0.6-1.2) 12/10/24 09:09 Est Cr Clr Drug Dosing 154.9 ml/min 12/10/24 09:09 eGFR 95.22 12/10/24 09:09 BUN/Creatinine Ratio 9.5 (10-20) L 12/10/24 09:09 Glucose 87 mg/dl (70-99(Fasting)) 12/10/24 09:09 POC Glucose 97 mg/dl (70-99) 12/10/24 07:09 Calcium 8.9 mg/dl (8.6-10.3) 12/10/24 09:09 Phosphorus 3.0 mg/dl (2.5-4.9) 12/08/24 07:18 Magnesium 1.8 mg/dl (1.7-2.4) 12/10/24 09:09 Total Bilirubin 0.7 mg/dl (0.2-1.0) 12/09/24 04:16 AST 31 U/L (13-39) 12/09/24 04:16 ALT 50 U/L (7-52) 12/09/24 04:16 Alkaline Phosphatase 60 U/L (34-104) 12/09/24 04:16 Total Creatine Kinase 87 U/L (26-192) 12/07/24 06:00 Troponin I High Sens 4.4 pg/ml (0-14) 12/06/24 12:50 Total Protein 6.6 gm/dl (6.0-8.3) 12/09/24 04:16 Albumin 3.7 gm/dl (3.4-5.0) 12/09/24 04:16 Globulin 2.9 gm/dl (2.5-4.0) 12/09/24 04:16 Albumin/Globulin Ratio 1.3 (0.9-2) 12/09/24 04:16 HCG, Qual Negative (Negative) 12/06/24 12:50 Salicylates < 3.0 mg/dl (3.0-30) L 12/06/24 12:50 Acetaminophen < 3 ug/ml (10-30) L 12/06/24 12:50 Ethyl Alcohol mg/dL < 10.0 mg/dl (<10.0) 12/06/24 12:50 SARS-CoV-2 (PCR) NEGATIVE (Negative) 12/10/24 Unknown Impressions Chest X-Ray 12/06/24 13:15 SINGLE VIEW CHEST CLINICAL HISTORY: Dizziness FINDINGS: An AP, portable, upright chest radiograph is obtained. No prior studies are available for comparison at the time of dictation. The cardiomediastinal silhouette is unremarkable. The lungs and pleural spaces are clear. No pneumothorax is seen. The bony thorax is grossly intact. IMPRESSION: No active disease in the chest. ACT 112: Negative or not required by law. Electronically signed by: Nehemias Hand M.D. 12/06/2024 1:54 PM Chest CTA 12/09/24 15:53 Clinical history: Chest pain and elevated d-dimer Technique: Axial computed tomography images were obtained of the chest after the administration of intravenous contrast according to the CT angiogram protocol Findings: There is no definite sign of pulmonary embolism. There is a small area of centrilobular interstitial opacity in the right lung apex, concerning for bronchopneumonia. There is no pleural effusion or pneumothorax. There is no sign of pulmonary fibrosis or other diffuse interstitial process. No endobronchial lesion is seen There is no mediastinal, hilar, or axillary adenopathy. The thoracic aorta appears unremarkable with no sign of aneurysm or dissection. There is no pericardial effusion The gallbladder has been removed. No fracture is seen. No focal osseous lesion is evident Impression: 1. No definite sign of pulmonary embolism 2. Suspected small area of bronchopneumonia in the right upper lobe Electronically signed by Arun Richard 12-09-2024 6:18 PM Venous Doppler Study 12/09/24 15:53 Clinical History: Rule out DVT Technique: Venous ultrasound evaluation was performed utilizing grayscale, color Doppler and wave form evaluation. Images were also obtained with and without compression Findings: The bilateral common femoral, superficial femoral, popliteal, and visualized calf veins demonstrate normal anechoic lumens with full compressibility. Normal flow is seen on color Doppler images. Expected waveforms were produced with augmentation maneuvers Impression: No evidence of deep venous thrombosis Electronically signed by Arun Richard 12-09-2024 6:26 PM 12/09/24 15:53 CT angio chest PE protocol Stat US venous doppler LE BI Stat Pending Results Patient Have Any Pending Studies at Discharge: No Discharge Instructions Given to Patient (Per Discharging Provider) Continue Levaquin 750 mg p.o. daily x 7 days. Probiotics x 10 days. Total Time Total Time Spent Total Time Spent (In Minutes): 50 minutes
[2024-12-10 16:09] VITALS: PULSE 69; O2SAT 97
== END 2024-12-10 17:33 | DRG 917 ==
LOC: ED 12:27 → 2E 13:54 → SUATTDRO 13:54 → 2E 15:07

== ENCOUNTER 2024-12-10 17:37 | Inpatient (IN) ==
[2024-12-10] MEDS ORDERED: SODIUM CHLORIDE 0.65% NA SOLN 45 ML (OCEAN) PRN (18:33)
[2024-12-10] MEDS ORDERED: BISMUTH SUBSALICYLATE 262 MG CHEW PO PRN (18:33)
[2024-12-10] MEDS ORDERED: ALUMINUM/MAGNESIUM SUSP 30 ML UDC PO PRN (18:33)
[2024-12-10] MEDS ORDERED: MAGNESIUM HYDROXIDE SUSP 30 ML UDC PO PRN (18:33)
--- NOTE | 2024-12-11 08:52 | History & Physical ---
Date of Service December 11, 2024 Impression / Recommendations Impression ANNETTE MASTERS is a 29-year-old woman who currently lives in [place] alone, has a history of major depression, panic disorder, anxiety, PTSD, self-harm, and was admitted on 12/10/24 17:37 on a 201 voluntary commitment for suicide attempt via metoprolol overdose. Diagnostically consistent with unspecified depression with differential including panic disorder vs PTSD vs trauma and other stressor related disorder vs acute exacerbation of SI in context of borderline personality disorder vs MDD given some recent hopelessness and helplessness. Discussed medication treatment options in detail. Discussed risks, benefits and alternatives. Patient would like to start and consented to fluoxetine for anxiety, depression, PTSD. Reviewed side effects including but not limited to: GI, RIVERA, sexual side effects. Reviewed psychoeducation about trauma and BPD. Discussed positive psychology/psychiatry and ways of setting health boundaries around media/news consumption given negative emotions invoked by most stories and posts. Overall I spent a total of 75 minutes for this admission including review of chart records, review of labwork, direct evaluation of the patient, counseling the patient, ordering medication, risk assessment, discussion with the psychiatric liason RN and documentation in the electronic health record. (1) Suicide attempt by beta daenne overdose: Encounter type: initial encounter Qualified Code(s): T44.7X2A - Poisoning by beta-adrenoreceptor antagonists, intentional self-harm, initial encounter (2) Depression: (3) Generalized anxiety disorder with panic attacks: (4) Panic disorder: (5) Trauma and stressor-related disorder: Plan 12/11/2024: The patient was admitted to [facility] on q15 min checks (behavioral with suicide precautions) for safety. The patient will participate in group, recreational, and milieu therapies and will be offered additional individual and family sessions as clinically appropriate. -Continue Levaquin 750mg qPM for 6 days, Protonix 40mg HS and probiotic -start fluoxetine 20mg daily - to confirm outpatient therapy intake and explore option for IOP like [facility] -Symptom questionnaires for: PHQ-9, ZACH-7, Y-BOCS, Nai BPD Inventory Assets Strengths: supportive relationships, willing to get treatment Needs: safety and stabilization, medication adjustment, additional coping skills, increased outpatient services Suicide Risk Level Suicide Risk Level: Moderate (q15 min suicide checks) (s/p serious attempt but now denying SI and feeling more hopeful, able to ask for support if needed) Risk Factors Assessment Male: No : Yes Do You Have Access To A Gun?: No Health Problems: Yes Mental Health Diagnoses: Yes Substance Use Disorders: No Previous Attempt: Yes Family History of Suicide: No Previous Psychiatric Hospitalization: Yes Hopelessness: No Protective Factors Assessment : No Responsible for Young Children: No Employed: Yes Supportive Family: Yes Psychiatric History Identifying Data ANNETTE MASTERS is a 29-year-old woman who currently lives in [place] alone, has a history of major depression, panic disorder, anxiety, PTSD, self-harm, and was admitted on 12/10/24 17:37 on a 201 voluntary commitment for suicide attempt via metoprolol overdose. Chief Complaint "I didn't want to feel stressed anymore". History of Present Illness Annette presents for psychiatric admission following a suicide attempt via overdose that occurred on Saturday, in the context of relationship stress and feeling overwhelmed about the state of the world. She describes her internal state and emotions as "the world feels really sad" and "my own thoughts feeling negative, hopeless, and scared" and "a lot of fear". She reports leaving her house on Saturday knowing she was going to attempt suicide, staying at a hotel Saturday night, and taking an overdose Saturday morning. About an hour after the overdose, she experienced palpitations and called 911. After seeing that her vitals were stable, she decided to drive home but began feeling more pain and palpitations with legs feeling like "jello." Concerned about potentially harming others on the road, she drove herself to the hospital. Prior to this attempt, Annette describes feeling stressed but not depressed in the days leading up to the event. She reports experiencing anxiety and rumination, particularly at night, stating she sometimes feels she cannot go to sleep until she has thought through things enough, though she has difficulty articulating exactly what this process entails. She mentions experiencing intrusive thoughts that she feels compelled to physically "remove" from her head, sometimes by hitting her head hard or by hitting something or screaming, though she states she no longer does this. Current stressors include her recent breakup from a 10-year relationship with her ex-boyfriend and concerns about the state of the world. 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 Currently she denies SI and has started to feel a bit more hopeful. She wonders if this attempt, while not meant to have happened, signifies a period of struggle that will now allow her to move forward in a more positive head space. Since the attempt people have reached out and shown her how much they care about her and it's been a chance to have her boyfriend move out as his drinking had been escalating and he'd been staying at her home. Annette has a history of major depressive disorder and panic disorder. She expresses skepticism about her previous bipolar diagnosis, feeling that her symptoms are more related to PTSD or trauma. She denies any current use of psychiatric medications, having last taken propranolol about two months ago for physical symptoms of anxiety. Previous medications have included Zoloft, Lexapro, Effexor which caused profuse sweating and made her feel physically unwell, Lamictal, Utting, and Abilify. She was prescribed Wellbutrin but never started it. She uses marijuana approximately once a week but notes it gives her anxiety and makes her think more, especially when alone. She had stopped using it for a while but smoked on the day of her suicide attempt. She does not drink alcohol and currently vapes. Psychiatric ROS notable for no current nor history of symptoms of kunal, psychosis. Psychiatric ROS notable for anxiety, panic, obsessive thoughts, rumination, and vivid dreams. She reports three suicide attempts via overdose with the most recent attempt occurring Saturday. Denies any history of psychosis or kunal. Some binge purging eating in the past, stable currently. History of self-harming via cutting in her 20s or hitting her head. Medical ROS positive for sweating and amenorrhea. Past Psychiatric History Current Psychiatric Diagnosis: Unspecified Depressive Disorder Outpatient Services: none, therapy intake scheduled for 12/22 [facility] as you are counseling in [facility] Previous Psych Admissions: >20, last 3 years ago at [facility] Do You Have Access To A Gun?: No History of Previous Suicide Attempt: Yes (3 total-via overdose) Past Medication Trials: Zoloft, lexapro - tried around age 17 SNRIs-Effexor XR-"hated this, physically felt awful, sweating" -lamictal and lithium -Abilify Maintena -Invega Allergies Allergy/AdvReac Type Severity Reaction Status Date / Time No Known Allergies Allergy Verified 12/06/24 14:48 Home Medications Medication Instructions Recorded Confirmed Type omeprazole 40 mg PO HS 12/09/24 12/09/24 History Lactobacillus acidoph-L.bulgaricus 1 tab PO DAILY #10 tabs 12/10/24 Rx 1 million cell tablet (Floranex) levofloxacin 750 mg tablet 750 mg PO Q24H 7 days #7 tabs 12/10/24 Rx Family History Family History of: Doesn't Know Alcohol History Hx of Alcohol Use Over the Past 12 Months: Yes AUDIT Total Score: 3 Smoking Use Have You Smoked or Used Tobacco Products in the Last 30 Days: No Smoking Status: Current some day smoker (vape intermittently) Substance History Hx of Prescription Med Misuse Over the Past 12 Months: No Hx of Over the Counter Med Misuse Over the Past 12 Months: No Hx of Inhalent Misuse Over the Past 12 Months: No Hx of Organic Substance Use Over the Past 12 Months: Yes (Marijuana) Hx of Illegal Substances/Street Drug Use Over Past 12 Months: No Problems as a Result of Past Substance Use: None Identified cannabis use about once week, makes anxiety worse, doesn't like anything about it Personal History Highest Grade Completed: High School Graduate 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) Marital Status: Single Beliefs That Will Affect Care: None Hx Traumatic Life Events: Yes Patient History Social History Smoking Status: Current some day smoker (vape intermittently) Tobacco Type: E-cigarettes / Vaping Hx Alcohol Use: No Hx Substance Use: No Preferred Language: Bangladeshi Communication Ability: Effective 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 Beliefs That Will Affect Care: None Current Living Situation: Alone Feels Safe at Home: Yes Gender Identity: Female Assistive Devices: None Review of Systems Review of Systems: All systems reviewed & are unremarkable except as noted in HPI & below Physical Exam Psychiatric: Orientation: alert and oriented x 3 Apperance: appropriately dressed and appropriately groomed Eye Contact: good eye contact Motor Behavior: no abnormal motor movements Speech: normal rate/rhythm/volume of speech Affect: + anxious affect Mood: + depressed mood and + anxious mood Thought Process: + circumstantial thought process Thought Content: reality based without delusions, + worthlessness and + guilt Suicidal Thoughts: denies suicidal thoughts, denies suicidal plan and denies suicidal intent Homicidal Thoughts: denies homicidal thoughts Hallucinations: no auditory hallucinations and no visual hallucinations Cognition: recent memory grossly intact, remote memory grossly intact, attention grossly intact and language grossly intact Estimated Intelligence: consistent with education level Insight: + fair insight Judgment: + limited judgement Vital Signs (Past 24 Hours): Last Vital Signs Temp 36.5 C 12/11/24 06:27 Pulse 71 12/11/24 06:27 Resp 16 12/11/24 06:27 BP 124/103 H 12/11/24 06:28 Pulse Ox 98 12/11/24 06:27 O2 Del Method Room Air 12/11/24 06:27 Exam Statement: A physical exam was performed on the medical floor by Dr. Mena for the purposes of medical clearance. I accept that physical as correct and adequate for the purposes of the inpatient physical exam. Results & Data ([facility]) Current Inpatient Medications Current Inpatient Medications: Current Inpatient Medications Acetaminophen (Acetaminophen 325 Mg Tab) 650 mg PO Q4H PRN PRN Reason: Headache or Minor Fever Stop: 01/09/25 18:32 Al Hydrox/Mg Hydrox/Simethicone (Aluminum/Magnesium Susp 30 Ml Udc) 30 ml PO Q4H PRN PRN Reason: GI Upset Stop: 01/09/25 18:32 Bismuth Subsalicylate (Bismuth Subsalicylate 262 Mg Chew) 2 tab PO Q30M PRN PRN Reason: Loose Stool/Diarrhea Stop: 01/09/25 18:32 Hydroxyzine HCl (Hydroxyzine Hcl 25 Mg Tab) 50 mg PO HSZ PRN PRN Reason: Insomnia Stop: 01/09/25 18:32 Hydroxyzine HCl (Hydroxyzine Hcl 25 Mg Tab) 25 mg PO Q4H PRN PRN Reason: Anxiety Stop: 01/09/25 18:32 Lactobacillus Acidophilus (Advanced Probiotic 625 Mg Capsule) 1,250 mg PO DAILY AISHWARYA Stop: 01/10/25 08:59 Levofloxacin (Levofloxacin 750 Mg Tab) 750 mg PO QPM AISHWARYA; Protocol Stop: 12/16/24 21:01 Magnesium Hydroxide (Magnesium Hydroxide Susp 30 Ml Udc) 30 ml PO DAILY PRN PRN Reason: Constipation Stop: 01/09/25 18:32 Pantoprazole Sodium (Pantoprazole 40 Mg Tab) 40 mg PO HS [facility] Stop: 01/09/25 21:59 Last Admin: 12/10/24 21:08 Dose: 40 mg Sodium Chloride (Sodium Chloride 0.65% Na Soln 45 Ml (Mobile)) 1 - 2 sprays NA PRN PRN PRN Reason: Nasal Dryness/Congestion Stop: 01/09/25 18:32
[2024-12-11] MEDS: ADVANCED PROBIOTIC 625 MG CAPSULE PO SCH (09:33)
--- NOTE | 2024-12-12 09:16 | Psychiatric Progress Note ---
Date of Service December 12, 2024 Impression / Recommendations Impression ANNETTE MASTERS is a 29-year-old woman who currently lives in [place] alone, has a history of major depression, panic disorder, anxiety, PTSD, self-harm, and was admitted on 12/10/24 17:37 on a 201 voluntary commitment for suicide attempt via metoprolol overdose. Diagnostically consistent with unspecified depression with differential including panic disorder vs PTSD vs trauma and other stressor related disorder vs MDD given some recent hopelessness and helplessness. A: Engaging a little bit today but still isolative to her room at times, reports mood is improving. Declining support meeting but open to exploring option of IOP. Tolerating initial dose of fluoxetine so far. ZACH-7 score of 18, PHQ-9 score of 10, Q9 #1, negative mood disorder questionnaire, negative nai BPD. Overall, I spent a total of 35 minutes on this case including meeting with the patient, reviewing the chart, nursing report, multidisciplinary team meeting, orders, and documentation. (1) Suicide attempt by beta deanne overdose: (2) Depression: (3) Generalized anxiety disorder with panic attacks: (4) Panic disorder: (5) Trauma and stressor-related disorder: Plan 12/12/2024: Continue current medications and tx plan 12/11/2024: The patient was admitted to the [facility] ([facility]) on q15 min checks (behavioral with suicide precautions) for safety. The patient will participate in group, recreational, and milieu therapies and will be offered additional individual and family sessions as clinically appropriate. -Continue Levaquin 750mg qPM for 6 days, Protonix 40mg HS and probiotic -start fluoxetine 20mg daily - to confirm outpatient therapy intake and explore option for IOP like [facility] -Symptom questionnaires for: PHQ-9, ZACH-7, Y-BOCS, Nai BPD Inventory Assets Strengths: supportive relationships, willing to get treatment Needs: safety and stabilization, medication adjustment, additional coping skills, increased outpatient services Suicide Risk Level Suicide Risk Level: Moderate (q15 min suicide checks) (s/p serious attempt but now denying SI and feeling more hopeful, able to ask for support if needed) Suicide Risk Level Comments: Risk Factors Assessment Male: No : Yes Do You Have Access To A Gun?: No Health Problems: Yes Mental Health Diagnoses: Yes Substance Use Disorders: No Previous Attempt: Yes Family History of Suicide: No Previous Psychiatric Hospitalization: Yes Hopelessness: No Protective Factors Assessment : No Responsible for Young Children: No Employed: Yes Supportive Family: Yes Interval History Identifying Information ANNETTE MASTERS is a 29-year-old woman who currently lives in [place] alone, has a history of major depression, panic disorder, anxiety, PTSD, self-harm, and was admitted on 12/10/24 17:37 on a 201 voluntary commitment for suicide attempt via metoprolol overdose. Chief Complaint "Good". Review of Systems Sleep Information Total Hours of Sleep: 7.25 Meal Information Percent Meal Consumed - Breakfast: 10 Percent Meal Consumed - Lunch: 0 Percent Meal Consumed - Dinner: 25 Subjective Subjective Patient was seen & assessed and interval progress reviewed with nursing and social work. Isolative to her room most of the day and didn't eat but then out of her room in the evening. Showered. Attended evening group but didn't participate. Participated actively in processing group this morning. Reports her mood is "good". Denies SI. Reviewed symptom questionnaires. She denies side effects from fluoxetine so far. Interested in virtual [facility]. Physical Exam Psychiatric Orientation: alert and oriented x 3 Apperance: appropriately dressed and appropriately groomed Eye Contact: good eye contact Motor Behavior: no abnormal motor movements Speech: normal rate/rhythm/volume of speech Affect: + constricted affect Mood: + anxious mood Thought Process: + circumstantial thought process Thought Content: reality based without delusions, + worthlessness and + loneliness Suicidal Thoughts: denies suicidal thoughts, denies suicidal plan and denies suicidal intent Homicidal Thoughts: denies homicidal thoughts Hallucinations: no auditory hallucinations and no visual hallucinations Cognition: recent memory grossly intact, remote memory grossly intact, attention grossly intact and language grossly intact Estimated Intelligence: consistent with education level Insight: + fair insight Judgment: + limited judgement Vital Signs (Past 24 Hours) Last Vital Signs Temp 36.8 C 12/12/24 06:28 Pulse 83 12/12/24 06:30 Resp 16 12/12/24 06:28 BP 136/83 12/12/24 06:30 Pulse Ox 98 12/11/24 06:27 O2 Del Method Room Air 12/11/24 06:27 Results & Data ([facility]) Current Inpatient Medications Current Inpatient Medications: Current Inpatient Medications Acetaminophen (Acetaminophen 325 Mg Tab) 650 mg PO Q4H PRN PRN Reason: Headache or Minor Fever Stop: 01/09/25 18:32 Al Hydrox/Mg Hydrox/Simethicone (Aluminum/Magnesium Susp 30 Ml Udc) 30 ml PO Q4H PRN PRN Reason: GI Upset Stop: 01/09/25 18:32 Bismuth Subsalicylate (Bismuth Subsalicylate 262 Mg Chew) 2 tab PO Q30M PRN PRN Reason: Loose Stool/Diarrhea Stop: 01/09/25 18:32 Fluoxetine HCl (Fluoxetine Hcl 20 Mg Cap) 20 mg PO QAM AISHWARYA Stop: 01/10/25 11:44 Last Admin: 12/12/24 07:58 Dose: 20 mg Hydroxyzine HCl (Hydroxyzine Hcl 25 Mg Tab) 50 mg PO HSZ PRN PRN Reason: Insomnia Stop: 01/09/25 18:32 Hydroxyzine HCl (Hydroxyzine Hcl 25 Mg Tab) 25 mg PO Q4H PRN PRN Reason: Anxiety Stop: 01/09/25 18:32 Lactobacillus Acidophilus (Advanced Probiotic 625 Mg Capsule) 1,250 mg PO DAILY AISHWARYA Stop: 01/10/25 08:59 Last Admin: 12/12/24 07:58 Dose: 1,250 mg Levofloxacin (Levofloxacin 750 Mg Tab) 750 mg PO QPM AISHWARYA; Protocol Stop: 12/16/24 21:01 Last Admin: 12/11/24 20:15 Dose: 750 mg Magnesium Hydroxide (Magnesium Hydroxide Susp 30 Ml Udc) 30 ml PO DAILY PRN PRN Reason: Constipation Stop: 01/09/25 18:32 Pantoprazole Sodium (Pantoprazole 40 Mg Tab) 40 mg PO HS AISHWARYA Stop: 01/09/25 21:59 Last Admin: 12/11/24 20:17 Dose: Not Given Sodium Chloride (Sodium Chloride 0.65% Na Soln 45 Ml ([place])) 1 - 2 sprays NA PRN PRN PRN Reason: Nasal Dryness/Congestion Stop: 01/09/25 18:32 Mental Health & Subst Abuse Tx Therapist Name of Therapist: Unable to recall, first appointment scheduled 12/22 in [facility] Date of Therapist Appointment: 12/22/24 Time of Therapist Appointment: Vanesa Woodall Post Discharge Appointments Primary Care Physician Name Of Family Doctor/PCP: Dr. Miryam Richardson (1) Suicide attempt by beta deanne overdose Encounter type: initial encounter Qualified Code(s): T44.7X2A - Poisoning by beta-adrenoreceptor antagonists, intentional self-harm, initial encounter
[2024-12-12] MEDS: ACETAMINOPHEN 325 MG TAB PO PRN (21:32)
--- NOTE | 2024-12-13 09:07 | Psychiatric Progress Note ---
Date of Service December 13, 2024 Impression / Recommendations Impression ANNETTE MASTERS is a 29-year-old woman who currently lives in [place] alone, has a history of major depression, panic disorder, anxiety, PTSD, self-harm, and was admitted on 12/10/24 17:37 on a 201 voluntary commitment for suicide attempt via metoprolol overdose. Diagnostically consistent with unspecified depression with differential including panic disorder vs PTSD vs trauma and other stressor related disorder vs MDD given some recent hopelessness and helplessness. A: Mood gradually improving but still not eating very well. Engaging in more groups, ongoing anxiety. Spends time in bed during parts of the day. Not interested in IOP but willing for individual therapy. Did not complete Y-BOCS screening. Overall, I spent a total of 30 minutes on this case including meeting with the patient, reviewing the chart, nursing report, multidisciplinary team meeting, orders, and documentation. (1) Suicide attempt by beta deanne overdose: (2) Depression: (3) Generalized anxiety disorder with panic attacks: (4) Panic disorder: (5) Trauma and stressor-related disorder: Plan 12/13/2024: Continue current medications and tx plan 12/12/2024: Continue current medications and tx plan 12/11/2024: The patient was admitted to the [facility] ([facility]) on q15 min checks (behavioral with suicide precautions) for safety. The patient w ill participate in group, recreational, and milieu therapies and will be offered additional individual and family sessions as clinically appropriate. -Continue Levaquin 750mg qPM for 6 days, Protonix 40mg HS and probiotic -start fluoxetine 20mg daily - to confirm outpatient therapy intake and explore option for IOP like [facility] -Symptom questionnaires for: PHQ-9, ZACH-7, Y-BOCS, Nai BPD Inventory Assets Strengths: supportive relationships, willing to get treatment Needs: safety and stabilization, medication adjustment, additional coping skills, increased outpatient services Suicide Risk Level Suicide Risk Level: Moderate (q15 min suicide checks) (s/p serious attempt but now denying SI and feeling more hopeful, able to ask for support if needed) Suicide Risk Level Comments: Risk Factors Assessment Male: No : Yes Do You Have Access To A Gun?: No Health Problems: Yes Mental Health Diagnoses: Yes Substance Use Disorders: No Previous Attempt: Yes Family History of Suicide: No Previous Psychiatric Hospitalization: Yes Hopelessness: No Protective Factors Assessment : No Responsible for Young Children: No Employed: Yes Supportive Family: Yes Interval History Identifying Information ANNETTE MASTERS is a 29-year-old woman who currently lives in [place] alone, has a history of major depression, panic disorder, anxiety, PTSD, self-harm, and was admitted on 12/10/24 17:37 on a 201 voluntary commitment for suicide attempt via metoprolol overdose. Chief Complaint "positive". Review of Systems Sleep Information Total Hours of Sleep: 5.25 Meal Information Percent Meal Consumed - Breakfast: 10 Percent Meal Consumed - Lunch: 10 Percent Meal Consumed - Dinner: 10 Subjective Subjective Patient was seen & assessed and interval progress reviewed with nursing and social work. Not eating much, only about 10%. Out of her room a little more but also isolative to her bed at times. Attended some of the groups. Had a headache this morning. Today reports her mood is "positive". Decided she doesn't want to do virtual IOP, prefers to start with individual therapy. Denies any medication side effects. Hopeful for discharge soon. Physical Exam Psychiatric Orientation: alert and oriented x 3 Apperance: appropriately dressed and appropriately groomed Eye Contact: good eye contact Motor Behavior: no abnormal motor movements Speech: normal rate/rhythm/volume of speech Affect: + constricted affect Mood: + anxious mood Thought Process: goal directed thought process Thought Content: reality based without delusions and + worthlessness Suicidal Thoughts: denies suicidal thoughts, denies suicidal plan and denies suicidal intent Homicidal Thoughts: denies homicidal thoughts Hallucinations: no auditory hallucinations and no visual hallucinations Cognition: recent memory grossly intact, remote memory grossly intact, attention grossly intact and language grossly intact Estimated Intelligence: consistent with education level Insight: + fair insight Judgment: + fair judgement Vital Signs (Past 24 Hours) Last Vital Signs Temp 36.7 C 12/13/24 06:21 Pulse 77 12/13/24 06:23 Resp 18 12/13/24 06:21 BP 137/89 12/13/24 06:23 Pulse Ox 98 12/11/24 06:27 O2 Del Method Room Air 12/11/24 06:27 Results & Data ([facility]) Current Inpatient Medications Current Inpatient Medications: Current Inpatient Medications Acetaminophen (Acetaminophen 325 Mg Tab) 650 mg PO Q4H PRN PRN Reason: Headache or Minor Fever Stop: 01/09/25 18:32 Last Admin: 12/13/24 07:38 Dose: 650 mg Al Hydrox/Mg Hydrox/Simethicone (Aluminum/Magnesium Susp 30 Ml Udc) 30 ml PO Q4H PRN PRN Reason: GI Upset Stop: 01/09/25 18:32 Bismuth Subsalicylate (Bismuth Subsalicylate 262 Mg Chew) 2 tab PO Q30M PRN PRN Reason: Loose Stool/Diarrhea Stop: 01/09/25 18:32 Fluoxetine HCl (Fluoxetine Hcl 20 Mg Cap) 20 mg PO QAM AISHWARYA Stop: 01/10/25 11:44 Last Admin: 12/13/24 07:38 Dose: 20 mg Hydroxyzine HCl (Hydroxyzine Hcl 25 Mg Tab) 50 mg PO HSZ PRN PRN Reason: Insomnia Stop: 01/09/25 18:32 Hydroxyzine HCl (Hydroxyzine Hcl 25 Mg Tab) 25 mg PO Q4H PRN PRN Reason: Anxiety Stop: 01/09/25 18:32 Lactobacillus Acidophilus (Advanced Probiotic 625 Mg Capsule) 1,250 mg PO DAILY AISHWARYA Stop: 01/10/25 08:59 Last Admin: 12/13/24 07:38 Dose: 1,250 mg Levofloxacin (Levofloxacin 750 Mg Tab) 750 mg PO QPM AISHWARYA; Protocol Stop: 12/16/24 21:01 Last Admin: 12/12/24 21:32 Dose: 750 mg Magnesium Hydroxide (Magnesium Hydroxide Susp 30 Ml Udc) 30 ml PO DAILY PRN PRN Reason: Constipation Stop: 01/09/25 18:32 Pantoprazole Sodium (Pantoprazole 40 Mg Tab) 40 mg PO HS AISHWARYA Stop: 01/09/25 21:59 Last Admin: 12/12/24 21:34 Dose: Not Given Sodium Chloride (Sodium Chloride 0.65% Na Soln 45 Ml ([place])) 1 - 2 sprays NA PRN PRN PRN Reason: Nasal Dryness/Congestion Stop: 01/09/25 18:32 Mental Health & Subst Abuse Tx Therapist Name of Therapist: Unable to recall, first appointment scheduled 12/22 in [facility] Date of Therapist Appointment: 12/22/24 Time of Therapist Appointment: Vanesa Woodall Post Discharge Appointments Primary Care Physician Name Of Family Doctor/PCP: Dr. Miryam Richardson (1) Suicide attempt by beta deanne overdose Encounter type: initial encounter Qualified Code(s): T44.7X2A - Poisoning by beta-adrenoreceptor antagonists, intentional self-harm, initial encounter
[2024-12-13 20:14] VITALS: O2SAT 96
[2024-12-14 06:21] VITALS: RESP 16
--- NOTE | 2024-12-14 09:13 | Psychiatric Progress Note ---
Date of Service December 14, 2024 Impression / Recommendations Impression ANNETTE MASTERS is a 29-year-old woman who currently lives in [place] alone, has a history of major depression, panic disorder, anxiety, PTSD, self-harm, and was admitted on 12/10/24 17:37 on a 201 voluntary commitment for suicide attempt via metoprolol overdose. Diagnostically consistent with unspecified depression with differential including panic disorder vs PTSD vs trauma and other stressor related disorder vs MDD given some recent hopelessness and helplessness. A: Presents with residual anxiety. Agreed to increasing dose of Prozac. Not interested in IOP but willing for individual therapy. Has appointment fro 12/22 set up. Did not complete Y-BOCS screening. Overall, I spent a total of 30 minutes on this case including meeting with the patient, reviewing the chart, nursing report, multidisciplinary team meeting, orders, and documentation. (1) Suicide attempt by beta deanne overdose: Continue Suicide precautions (2) Depression: Continue Prozac Recommended individual psychotherapy after discharge (3) Generalized anxiety disorder with panic attacks: Increase Prozac TO 40 MG PO QAM to target residual anxiety sympotms. (4) Panic disorder: NO recent episodes (5) Trauma and stressor-related disorder: Sleep improved. Denied nightmares. Plan 12/14/2024: -Completed recommended 5 days of Levofloxacin, will D/C order -Increase Prozac to 40 mg po qam -Labs ordered including repeat D-dimer, B12, methymalonic acid. 12/13/2024: Continue current medications and tx plan 12/12/2024: Continue current medications and tx plan 12/11/2024: The patient was admitted to the [facility] ([facility] mental health unit) on q15 min checks (behavioral with suicide precautions) for safety. The patient will participate in group, recreational, and milieu therapies and will be offered additional individual and family sessions as clinically appropriate. -Continue Levaquin 750mg qPM for 6 days, Protonix 40mg HS and probiotic -start fluoxetine 20mg daily -SW to confirm outpatient therapy intake and explore option for IOP like [facility] -Symptom questionnaires for: PHQ-9, ZACH-7, Y-BOCS, Nai BPD Inventory Assets Strengths: supportive relationships, willing to get treatment Needs: safety and stabilization, medication adjustment, additional coping skills, increased outpatient services Suicide Risk Level Suicide Risk Level: Moderate (q15 min suicide checks) (s/p serious attempt but now denying SI and feeling more hopeful, able to ask for support if needed) Suicide Risk Level Comments: Risk Factors Assessment Male: No : Yes Do You Have Access To A Gun?: No Health Problems: Yes Mental Health Diagnoses: Yes Substance Use Disorders: No Previous Attempt: Yes Family History of Suicide: No Previous Psychiatric Hospitalization: Yes Hopelessness: No Protective Factors Assessment : No Responsible for Young Children: No Employed: Yes Supportive Family: Yes Interval History Identifying Information ANNETTE MASTERS is a 29-year-old woman who currently lives in [place] alone, has a history of major depression, panic disorder, anxiety, PTSD, self-harm, and was admitted on 12/10/24 17:37 on a 201 voluntary commitment for suicide attempt via metoprolol overdose. Chief Complaint "I still have quite a bit of anxiety but not suicidal thoughts." Review of Systems Sleep Information Total Hours of Sleep: 6.5 Meal Information Percent Meal Consumed - Breakfast: 25 Percent Meal Consumed - Lunch: 10 Percent Meal Consumed - Dinner: 0 Subjective Subjective Patient was seen & assessed and interval progress reviewed during treatment team with nursing and social work. Evaluated at bedside. She complained of chest tightness. Her labs showed an elevate D-Dimer on 12/09. She denied other accompanying symptoms and reported she recently completed a 5-course of antibiotics. Reported her anxiety is still not well controlled and is agreeable to increasing the dose of Prozac. Physical Exam Mental Examination Appearance: Unkempt Eye Contact: Maintains Eye Contact Motor Behavior: Unremarkable Speech: Normal Mood: Anxious Affect: Appropriate and Stable Thought Process: Intact Insight: Fair Judgement: Fair Psychiatric Orientation: alert and oriented x 3 Apperance: + disheveled and appeared stated age Eye Contact: good eye contact Motor Behavior: no abnormal motor movements Speech: normal rate/rhythm/volume of speech Affect: + anxious affect Mood: + anxious mood Thought Process: goal directed thought process Thought Content: reality based without delusions, + loneliness and + guilt Suicidal Thoughts: denies suicidal thoughts, denies suicidal plan and denies suicidal intent Homicidal Thoughts: denies homicidal thoughts Hallucinations: no auditory hallucinations and no visual hallucinations Cognition: recent memory grossly intact, remote memory grossly intact, attention grossly intact and language grossly intact Estimated Intelligence: consistent with education level Insight: + fair insight Judgment: + fair judgement Vital Signs (Past 24 Hours) Last Vital Signs Temp 36.8 C 12/14/24 06:19 Pulse 90 12/14/24 06:20 Resp 16 12/14/24 06:19 BP 119/81 12/14/24 06:20 Pulse Ox 96 12/13/24 20:13 O2 Del Method Room Air 12/13/24 20:13 Results & Data ([facility]) Current Inpatient Medications Current Inpatient Medications: Current Inpatient Medications Acetaminophen (Acetaminophen 325 Mg Tab) 650 mg PO Q4H PRN PRN Reason: Headache or Minor Fever Stop: 01/09/25 18:32 Last Admin: 12/13/24 16:43 Dose: 650 mg Al Hydrox/Mg Hydrox/Simethicone (Aluminum/Magnesium Susp 30 Ml Udc) 30 ml PO Q4H PRN PRN Reason: GI Upset Stop: 01/09/25 18:32 Bismuth Subsalicylate (Bismuth Subsalicylate 262 Mg Chew) 2 tab PO Q30M PRN PRN Reason: Loose Stool/Diarrhea Stop: 01/09/25 18:32 Fluoxetine HCl (Fluoxetine Hcl 20 Mg Cap) 20 mg PO QAM AISHWARYA Stop: 01/10/25 11:44 Last Admin: 12/14/24 08:39 Dose: 20 mg Hydroxyzine HCl (Hydroxyzine Hcl 25 Mg Tab) 50 mg PO HSZ PRN PRN Reason: Insomnia Stop: 01/09/25 18:32 Last Admin: 12/13/24 21:15 Dose: 50 mg Hydroxyzine HCl (Hydroxyzine Hcl 25 Mg Tab) 25 mg PO Q4H PRN PRN Reason: Anxiety Stop: 01/09/25 18:32 Lactobacillus Acidophilus (Advanced Probiotic 625 Mg Capsule) 1,250 mg PO DAILY AISHWARYA Stop: 01/10/25 08:59 Last Admin: 12/14/24 08:39 Dose: 1,250 mg Levofloxacin (Levofloxacin 750 Mg Tab) 750 mg PO QPM AISHWARYA; Protocol Stop: 12/16/24 21:01 Last Admin: 12/13/24 21:14 Dose: 750 mg Magnesium Hydroxide (Magnesium Hydroxide Susp 30 Ml Udc) 30 ml PO DAILY PRN PRN Reason: Constipation Stop: 01/09/25 18:32 Pantoprazole Sodium (Pantoprazole 40 Mg Tab) 40 mg PO HS AISHWARYA Stop: 01/09/25 21:59 Last Admin: 12/13/24 21:15 Dose: Not Given Sodium Chloride (Sodium Chloride 0.65% Na Soln 45 Ml ([place])) 1 - 2 sprays NA PRN PRN PRN Reason: Nasal Dryness/Congestion Stop: 01/09/25 18:32 Mental Health & Subst Abuse Tx Therapist Name of Therapist: Himanshu Rea - As you are counseling Therapist's Phone Number: [phone] Date of Therapist Appointment: 12/22/24 Time of Therapist Appointment: Vanesa Woodall Post Discharge Appointments Primary Care Physician Name Of Family Doctor/PCP: Dr. Miryam Richardson (1) Suicide attempt by beta deanne overdose Encounter type: initial encounter Qualified Code(s): T44.7X2A - Poisoning by beta-adrenoreceptor antagonists, intentional self-harm, initial encounter
[2024-12-14 11:32] LABS: Hematocrit (blood only) 45.5 % (37.0-47.0); Hemoglobin 15.7 g/dl (12.0-16.0); Immature Granulocytes # (auto) 0.03 K/uL (0.01-0.20); Immature Granulocytes % (auto) 0.3 %; Mean Corpuscular Hemoglobin 29.7 pg (25.0-34.0); Mean Corpuscular Volume 86.2 fL (80.0-100.0); Platelet Count 233 K/uL (130-400); RDW Standard Deviation 45.1 fL (36.4-46.3); Red Blood Count 5.28 M/uL (4.20-5.40); White Blood Count 11.09 K/ul (4.8-10.8)
[2024-12-14 11:48] LABS: Alanine Aminotransferase 47 U/L (7-52); Albumin Globulin Ratio 1.1 (0.9-2); Alkaline Phosphatase 67 U/L (34-104); Anion Gap 12 (3-11); Bilirubin,Total 0.7 mg/dl (0.2-1.0); Blood Urea Nitrogen 13 mg/dl (6-23); Calcium 9.9 mg/dl (8.6-10.3); Carbon Dioxide 24 mmol/L (21-32); Chloride 100 mmol/L (98-107); Globulin 3.9 gm/dl (2.5-4.0); Glucose 82 mg/dl (70-99(Fasting)); Potassium 3.8 mmol/L (3.5-5.1); Sodium 136 mmol/L (136-145); Total Protein 8.3 gm/dl (6.0-8.3)
[2024-12-15 06:26] VITALS: TEMP 97.9
--- NOTE | 2024-12-15 10:06 | Discharge Summary ---
Date of Service December 15, 2024 History of Present Illness Nakia presents for psychiatric admission following a suicide attempt via overdose that occurred on Saturday, in the context of relationship stress and feeling overwhelmed about the state of the world. She describes her internal state and emotions as "the world feels really sad" and "my own thoughts feeling negative, hopeless, and scared" and "a lot of fear". She reports leaving her house on Saturday knowing she was going to attempt suicide, staying at a hotel Saturday night, and taking an overdose Saturday morning. About an hour after the overdose, she experienced palpitations and called 911. After seeing that her vitals were stable, she decided to drive home but began feeling more pain and palpitations with legs feeling like "jello." Concerned about potentially harming others on the road, she drove herself to the hospital. Prior to this attempt, Nakia describes feeling stressed but not depressed in the days leading up to the event. She reports experiencing anxiety and rumination, particularly at night, stating she sometimes feels she cannot go to sleep until she has thought through things enough, though she has difficulty articulating exactly what this process entails. She mentions experiencing intrusive thoughts that she feels compelled to physically "remove" from her head, sometimes by hitting her head hard or by hitting something or screaming, though she states she no longer does this. Current stressors include her recent breakup from a 10-year relationship with her ex-boyfriend and concerns about the state of the world. 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 Currently she denies SI and has started to feel a bit more hopeful. She wonders if this attempt, while not meant to have happened, signifies a period of struggle that will now allow her to move forward in a more positive head space. Since the attempt people have reached out and shown her how much they care about her and it's been a chance to have her boyfriend move out as his drinking had been escalating and he'd been staying at her home. Nakia has a history of major depressive disorder and panic disorder. She expresses skepticism about her previous bipolar diagnosis, feeling that her symptoms are more related to PTSD or trauma. She denies any current use of psychiatric medications, having last taken propranolol about two months ago for physical symptoms of anxiety. Previous me dications have included Zoloft, Lexapro, Effexor which caused profuse sweating and made her feel physically unwell, Lamictal, [place], and Abilify. She was prescribed Wellbutrin but never started it. She uses marijuana approximately once a week but notes it gives her anxiety and makes her think more, especially when alone. She had stopped using it for a while but smoked on the day of her suicide attempt. She does not drink alcohol and currently vapes. Psychiatric ROS notable for no current nor history of symptoms of kunal, psychosis. Psychiatric ROS notable for anxiety, panic, obsessive thoughts, rumination, and vivid dreams. She reports three suicide attempts via overdose with the most recent attempt occurring Saturday. Denies any history of psychosis or kunal. Some binge purging eating in the past, stable currently. History of self-harming via cutting in her 20s or hitting her head. Medical ROS positive for sweating and amenorrhea. Physical Exam Mental Examination Appearance: Unkempt Eye Contact: Maintains Eye Contact Motor Behavior: Unremarkable Speech: Normal Mood: Anxious Affect: Appropriate and Stable Thought Process: Intact Insight: Fair Judgement: Fair Psychiatric Orientation: alert and oriented x 3 Apperance: appropriately dressed, appropriately groomed, + disheveled and appeared stated age Eye Contact: good eye contact Motor Behavior: no abnormal motor movements Speech: normal rate/rhythm/volume of speech Affect: + depressed affect, + anxious affect and + constricted affect Mood: + depressed mood and + anxious mood Thought Process: goal directed thought process and + circumstantial thought process Thought Content: reality based without delusions, + worthlessness, + loneliness and + guilt Suicidal Thoughts: denies suicidal thoughts, denies suicidal plan and denies suicidal intent Homicidal Thoughts: denies homicidal thoughts Hallucinations: no auditory hallucinations and no visual hallucinations Cognition: recent memory grossly intact, remote memory grossly intact, attention grossly intact and language grossly intact Estimated Intelligence: consistent with education level Insight: + fair insight Judgment: + limited judgement and + fair judgement Vital Signs (Past 24 Hours) Last Vital Signs Temp 36.6 C 12/15/24 06:24 Pulse 107 H 12/15/24 06:25 Resp 16 12/15/24 06:24 BP 111/74 12/15/24 06:25 Pulse Ox 96 12/13/24 20:13 O2 Del Method Room Air 12/13/24 20:13 Principal Diagnosis Generalized anxiety DIsorder. Psychiatric Data See daily stay summary. In short, safety was maintained and the patient was cooperative with care. Medication changes included [] and they tolerated this well. A family session was [held] and safety plan was completed prior to discharge. Day of Discharge Assessment Today the patient voices readiness for discharge. They note improvement in mood and deny thoughts to harm self or others. Thoughts remain organized and they are improved from admission. There is no evidence of psychosis. They agree to take mediations as prescribed and keep follow-up appointments. They are stable for discharge to outpatient level of care. Patient is interested in doing EMDR therapy and has an appointment on 12/22. SHe plans to return to work on Saturday. She indicated she will fax [employer] papers to cover the days she was away from work for this admission. Transition of Care Transition Of Care Record: was reviewed with the patient Advance Directives Advance Directives Information Provided: Yes Advance Directives: No Mental Health Advance Directive: No Advance Directives on File: No Living Will: No Power of Assigner: No Advance Directives Reason:: Declines as Mental Health Visit. Suicide Risk Level Suicide Risk Level: Low (q15 min observation checks) Suicide Risk Level Comments: Risk Factors Assessment Male: No : Yes Do You Have Access To A Gun?: No Health Problems: Yes Mental Health Diagnoses: Yes Substance Use Disorders: No Previous Attempt: Yes Family History of Suicide: No Previous Psychiatric Hospitalization: Yes Hopelessness: No Protective Factors Assessment : No Responsible for Young Children: No Employed: Yes Supportive Family: Yes Good Rapport with Provider: Yes Discharge Data Procedures Performed Overall, I spent a total of 45 minutes with this case, including review of chart,direct evaluation of the patient, counseling the patient, ordering medication, coordination with nursing, interdisciplinary team meeting, risk assessment,and documentation. Lab Results 12/14/24 10:45 WBC 11.09 H RBC 5.28 Hgb 15.7 Hct 45.5 MCV 86.2 MCH 29.7 MCHC 34.5 RDW Std Deviation 45.1 RDW Coeff of Miles 14.5 Plt Count 233 MPV 12.0 Immature Gran % (Auto) 0.3 Neut % (Auto) 62.5 Lymph % (Auto) 30.8 Gem % (Auto) 5.1 Eos % (Auto) 1.0 Baso % (Auto) 0.3 Neut # (Auto) 6.93 H Lymph # (Auto) 3.42 H Gem # (Auto) 0.57 Eos # (Auto) 0.11 Baso # (Auto) 0.03 Immature Gran # (Auto) 0.03 D-Dimer 350 Sodium 136 Potassium 3.8 Chloride 100 Carbon Dioxide 24 Anion Gap 12 H BUN 13 Creatinine 0.74 Est Cr Clr Drug Dosing Not Reportable eGFR 110.86 BUN/Creatinine Ratio 17.6 Glucose 82 Calcium 9.9 Total Bilirubin 0.7 AST 32 ALT 47 Alkaline Phosphatase 67 Total Protein 8.3 Albumin 4.4 Globulin 3.9 Albumin/Globulin Ratio 1.1 Vitamin B12 477 Hospital Course (1) Suicide attempt by beta leonardo overdose: (2) Depression: (3) Generalized anxiety disorder with panic attacks: (4) Panic disorder: NO recent episodes (5) Trauma and stressor-related disorder: Sleep improved. Denied nightmares. Plan 12/15/2024: Patient tolerated higher dose of Prozac. Denied side effects. Showed overall improvement of symptoms. Suicidal ideation resolved and she is future oriented, interested in returning to work.Return to work letter completed and signed. Recommended to have follow up with PCP. Wishes to continue treatment in the OP setting. BP has been normal despite lack of Beta Leonardo (one abnormal reported today was rechecked and BP shown to be WNL). D-Dimer no longer elevated. Patient denied chest pain. Ready for discharge. 12/14/2024: -Completed recommended 5 days of Levofloxacin, will D/C order -Increase Prozac to 40 mg po qam -Labs ordered including repeat D-dimer, B12, methymalonic acid. 12/13/2024: Continue current medications and tx plan 12/12/2024: Continue current medications and tx plan 12/11/2024: The patient was [facility] to the [facility] on q15 min checks (behavioral with suicide precautions) for safety. The patient will participate in group, recreational, and milieu therapies and will be offered additional individual and family sessions as clinically appropriate. -Continue Levaquin 750mg qPM for 6 days, Protonix 40mg HS and probiotic -start fluoxetine 20mg daily -SW to confirm outpatient therapy intake and explore option for IOP like [facility] -Symptom questionnaires for: PHQ-9, ZACH-7, Y-BOCS, Nai BPD Mental Health & Subst Abuse Tx Therapist Name of Therapist: Himanshu Rea - As you are counseling Therapist's Phone Number: [phone] Date of Therapist Appointment: 12/22/24 Time of Therapist Appointment: Vanesa Woodall Post Discharge Appointments Primary Care Physician Name Of Family Doctor/PCP: Dr. Miryam Richardson Other #1: Name of Aftercare Appointment: [facility] Intensive outpatient therapy (Virtual) Phone Number of Aftercare Appointment: [phone] Aftercare Appointment Comment: Contact [facility] to schedule intake if interested Discharge Plan Discharge Items Patient Disposition: Home - Self-Care Reason For Visit: UNSPECIFIED DEPRESSION Discharge Diagnosis: Generalized anxiety disorder Panic Disorder Suicide attempt by betablocker overdose (resolved) Condition on Discharge: Good Health Concerns: Recent pneumonia with D-Dimer elevation . Received course of antibiotic. Follow up D-Dimer within normal limits on discharge. White blood cells remain elevated. Recommended follow up with PCP. Activity: Resume your previous activity Bathing: No limitations Non-emergency contact: Primary Care Provider Call non-emergency contact if: you have any medication questions and your symptoms worsen Follow-up/Referrals: Miryam Franklin DO [Primary Care Provider] - Diet: Regular Addtl Attending Provider Instructions: SPECIAL CARE INSTRUCTIONS: 1. Follow through with your scheduled aftercare appointments. If unable to keep an appointment, please call to reschedule. 2. Take your medication only as prescribed. Medication should not be changed or stopped without the approval of your doctor. In the event of worsening symptoms or concerns about side effects, contact your doctor immediately. 3. Utilize new healthy coping skills, anger management skills, and stress management skills learned during your hospitalization. Journal feelings and process them with a support person. Identify stressors or situations that may result in relapse, deterioration or inappropriate behaviors and develop a plan to deal with those issues. 4. If your coping skills are ineffective and you are in crisis, contact your outpatient providers for direction. If unable to reach your providers, please call the [facility] CRISIS LINE AT , go to the [facility] walk-in center at [address], [address], [place], or go to the closest Emergency Room. 5. Avoid alcohol and un-prescribed drugs. 6. You have been provided with the Mental Health Advance Directives Pamphlet for your review. 7. Your condition is stable for discharge to outpatient level of care, but recovery is an ongoing process. Ifthoughts to harm yourself or others return, follow the safety plan developed during your stay. Planning for a safe return home includes securing weapons. Our treatment team recommends weaponsbe removed from the home until your outpatient provider reassesses your progress. In rare cases where the items themselvescannot be removed, guns and ammunitionshould be secured separatelyand keys stored by a reliable personoutside of the home. If you were admitted on an involuntary commitment, the police or other legal authorities may be involved in this process. AFTERCARE APPOINTMENTS: * Please call your insurance company prior to your scheduled appointment to confirm your aftercare providers are covered. Take your insurance information to your appointments. WHO TO CALL AND WHEN: Medical Emergencies: For questions or emergencies related to your hospital stay, please contact the [facility] at [phone]. A toy consultant is on-call 26/11 for the Behavioral Health Unit for emergencies At any time you feel your situation is an emergency, you may also call 911 immediately. Pending Studies at Discharge: No Stand-Alone Forms: My [facility] [employer], Smoking Cessation Medications and DC Order Prescriptions: New fluoxetine 20 mg Capsule 40 mg PO QAM Qty: 45 0RF Continued omeprazole 40 mg PO HS Lactobacillus acidoph-L.bulgar [Floranex] 1 million cell tablet 1 tab PO DAILY Qty: 10 0RF Discontinued levofloxacin 750 mg Tablet 750 mg PO Q24H 7 Days Qty: 7 0RF Discharge Orders: Discharge Order (Routine); Ordered 12/15/24 Ordered By: Mariam Alva/Other Patient Handouts: Anxiety Disorders Tx, Manage Stress Healthy Lifestyle, ZACH Admission Data Admit Date/Time: 12/10/24 17:37 Attending Provider: Mari Alcala Admit Provider: Mari Alcala Primary Care Provider: Miryam Franklin Other Interventions: Discharge Summary Assessment (RN) Last Done: 12/15/24 10:34 C[place] [address] D/C day mgmt > 30 min Patient Type Established History Problem Focused Exam Problem Focused Medical Decision Making Low Complexity Diagnoses Suicide attempt by beta-adrenergic antagonist overdose, initial encounter T44.7X2A Encounter type: initial encounter Depression F32.A Generalized anxiety disorder with panic attacks F41.1; F41.0 Panic disorder F41.0 Trauma and stressor-related disorder F43.9 Time Spent (min) 45
[2024-12-15] MEDS ORDERED: DESTROY THIS MEDICATION ONE (10:32)
[2024-12-15 10:38] VITALS: BP 124/103; PULSE 103
== END 2024-12-15 11:25 | disposition home or self-care (01) | DRG 880 ==
LOC: 3S 17:37